=== PATIENT | male | born 1960 | race Caucasian/White ===

== ENCOUNTER → 2016-10-31 | Outpatient (CLI) | payer OTHER ==
[2016-10-31 10:55] LABS: ALBUMIN 3.7 GM/DL (3.2-5.2); ALBUMIN/GLOBULIN RATIO 1.06 (1.00-1.93); ALKALINE PHOSPHATASE 139 U/L (45-117); ALT/SGPT 42 U/L (12-78); ANION GAP 9 MEQ/L (8-16); AST/SGOT 21 U/L (15-37); BILIRUBIN,TOTAL 0.5 MG/DL (0.2-1.0); BLOOD UREA NITROGEN 15 MG/DL (7-18); CALCIUM LEVEL 8.6 MG/DL (8.5-10.1); CARBON DIOXIDE LEVEL 28 MEQ/L (21-32); CHLORIDE LEVEL 100 MEQ/L (98-107); CHOLESTEROL LEVEL 169 MG/DL (<200); CREATININE FOR GFR 0.91 MG/DL (0.70-1.30); GLOMERULAR FILTRATION RATE > 60.0 (>56); GLUCOSE, FASTING 170 MG/DL (70-105); SODIUM LEVEL 137 MEQ/L (136-145); TOTAL PROTEIN 7.2 GM/DL (6.4-8.2); TRIGLYCERIDES LEVEL 146 MG/DL (<150)
== END ==
LOC: M LAB 09:25
PROVIDERS: ATTEND Family Medicine Addiction Medicine
DX: E11.9 Type 2 diabetes mellitus without complications (principal)

== ENCOUNTER → 2017-03-03 | Outpatient (CLI) | payer OTHER ==
[~2017-03-03] MED LIST: ASPI81TA85 PO; GLIP2.5T6 PO; GLUC1000 PO; HYDR50TAB; LISI-538 PO; LOVA20TA2 PO; PREG100CA
[2017-03-03 12:59] LABS: ALBUMIN 3.8 GM/DL (3.2-5.2); ALBUMIN/GLOBULIN RATIO 1.12 (1.00-1.93); ALKALINE PHOSPHATASE 95 U/L (45-117); ALT/SGPT 51 U/L (12-78); ANION GAP 9 MEQ/L (8-16); AST/SGOT 31 U/L (15-37); BILIRUBIN,TOTAL 0.5 MG/DL (0.2-1.0); BLOOD UREA NITROGEN 13 MG/DL (7-18); CALCIUM LEVEL 9.4 MG/DL (8.5-10.1); CARBON DIOXIDE LEVEL 28 MEQ/L (21-32); CHLORIDE LEVEL 100 MEQ/L (98-107); CHOLESTEROL LEVEL 155 MG/DL (<200); CREATININE FOR GFR 0.91 MG/DL (0.70-1.30); GLOMERULAR FILTRATION RATE > 60.0 (>56); GLUCOSE, FASTING 78 MG/DL (70-105); POTASSIUM SERUM 4.4 MEQ/L (3.5-5.1); SODIUM LEVEL 137 MEQ/L (136-145); TOTAL PROTEIN 7.2 GM/DL (6.4-8.2); TRIGLYCERIDES LEVEL 157 MG/DL (<150)
== END ==
LOC: M LAB 11:26
PROVIDERS: ATTEND Family Medicine Addiction Medicine
DX: E11.9 Type 2 diabetes mellitus without complications (principal)

== ENCOUNTER 2017-03-12 16:51 | Emergency (ER) | payer OTHER ==
[~2017-03-12] VITALS: Ht 172.7 cm; Wt 163.3 kg
[2017-03-12] MEDS ORDERED: PREG100CA (17:09)
[2017-03-12] MEDS ORDERED: LOVA20TA2 PO (17:09)
[2017-03-12] MEDS ORDERED: GLUC1000 PO (17:09)
[2017-03-12] MEDS ORDERED: LISI-538 PO (17:09)
[2017-03-12] MEDS ORDERED: ASPI81TA85 PO (17:09)
[2017-03-12] MEDS ORDERED: GLIP2.5T6 PO (17:09)
[2017-03-12] MEDS ORDERED: HYDR50TAB (17:09)
[2017-03-12 17:26] LABS: BASO % 0.6 % (0.0-1.0); EOS # 0.4 K/mm3 (0.0-0.50); EOS % 4.5 % (0.0-3.0); LARGE UNSTAINED CELL # 0.2 K/mm3 (0.0-0.4); LARGE UNSTAINED CELL % 3.1 % (0.0-4.0); LYMPH # 2.3 K/mm3 (1.5-4.5); LYMPH % 29.2 % (24.0-44.0); MEAN CORPUSCULAR HEMOGLOBIN 29.9 pg (27.0-33.0); MEAN CORPUSCULAR HGB CONC 34.1 g/dl (32.0-36.5); MEAN CORPUSCULAR VOLUME 87.8 fl (80.0-96.0); MONO # 0.7 K/mm3 (0.0-0.8); MONO % 8.6 % (0.0-5.0); NEUTROPHILS # 4.3 K/mm3 (1.8-7.7); NEUTROPHILS % 54.1 % (36.0-66.0); PLATELET COUNT, AUTOMATED 327 k/mm3 (150-450); RED CELL DISTRIBUTION WIDTH 13.3 % (11.5-14.5); WHITE BLOOD COUNT 7.9 K/mm3 (4.0-10.0)
[2017-03-12] MEDS ORDERED: ASPIRIN 81 MG CHEW TABLET PO ONE (17:30)
[2017-03-12 17:41] LABS: ALBUMIN 3.9 GM/DL (3.2-5.2); ALBUMIN/GLOBULIN RATIO 1.18 (1.00-1.93); ALKALINE PHOSPHATASE 92 U/L (45-117); ALT/SGPT 48 U/L (12-78); ANION GAP 5 MEQ/L (8-16); AST/SGOT 23 U/L (15-37); BILIRUBIN,DIRECT < 0.1 MG/DL (0.0-0.2); BILIRUBIN,TOTAL 0.3 MG/DL (0.2-1.0); BLOOD UREA NITROGEN 20 MG/DL (7-18); CALCIUM LEVEL 8.8 MG/DL (8.5-10.1); CARBON DIOXIDE LEVEL 29 MEQ/L (21-32); CHLORIDE LEVEL 103 MEQ/L (98-107); CREATININE FOR GFR 1.12 MG/DL (0.70-1.30); GLOMERULAR FILTRATION RATE > 60.0 (>56); GLUCOSE, FASTING 97 MG/DL (70-105); SODIUM LEVEL 137 MEQ/L (136-145); TOTAL PROTEIN 7.2 GM/DL (6.4-8.2)
--- NOTE | 2017-03-12 17:55 | REP ---
Chest one-view HISTORY: Chest pain Comparison: 05/26/2016 The lungs are clear. The heart is normal in size. The pulmonary vasculature is normal in appearance. Impression: No acute disease. Signed by Brenton Monae MD 03/12/2017 05:46 P
[2017-03-12] MEDS ORDERED: ISOVUE-370 76% 100ML VIAL (Q9967) As Ordered ONE (18:07)
--- NOTE | 2017-03-12 19:40 | REPUSA ---
HISTORY: CHEST PAIN RADIATING TO BACK. TECHNIQUE: Axial CT imaging of chest with sagittal and coronal reformatted imaging for PE protocol wi th intravenous contrast enhancement. CTDIVOL= 39.5 mGy DLP= 3728 mGy-cm. FINDINGS: The thoracic aorta is normal with no evidence of aneurysm or dissection. Pulmonary arterie s are normal with no detectable evidence of pulmonary embolism. No pathologically enlarged mediastin al or hilar lymph nodes are seen. No other mediastinal mass lesions are seen. Bone windows demonstr ate no evidence of fracture or destructive bony lesion in the chest. Lung windows demonstrate a 6 mm calcified granuloma in the right middle lobe. There is a 5 mm calcif ied granuloma in the right upper lobe. No pathologically suspicious mass lesions are seen in the kelly gs. There is bilateral groundglass opacification in the lungs and geographic distribution consistent with nonspecific interstitial lung disease. No alveolar consolidation is seen. No pneumothorax or pleural effusions are seen. No cystic lung disease is seen. IMPRESSION: 1. No evidence of thoracic aortic aneurysm or dissection and no evidence of pulmonary em bolism. 2. No mediastinal mass lesions or pathologically enlarged mediastinal or hilar lymphadenopathy seen. 3. No pulmonary alveolar consolidation, pneumothorax, or significant pleural effusion seen in the edwardo ngs. There is diffuse geographic ground glass opacification bilaterally which is a nonspecific findi ng, most likely related to interstitial lung disease. 4. Small calcified granulomata noted with no suspicious pulmonary mass lesions seen.
--- NOTE | 2017-03-12 20:00 | REPUSA ---
HISTORY: BACK PAIN. TECHNIQUE: Axial CT imaging of abdomen and pelvis with sagittal and coronal reformatted imaging with intravenous contrast enhancement. DLP= 3728 mGy-cm. FINDINGS: The liver, biliary tree, gallbladder, spleen, pancreas, adrenal glands, and kidneys are nor mal with no pathologic mass seen. Both kidneys function without evidence of calculus or obstruction. There is a benign 2.6 cm cyst in the left kidney. There is no evidence of solid renal mass, hydron ephrosis, or calculi seen. Uterus and urinary bladder are normal. Calcified plaques are seen in the abdominal aorta, including a calcified plaque in the celiac axis. There is no evidence of aortic an eurysm or retroperitoneal adenopathy. No pelvic mass lesions or abnormal peritoneal fluid collection s are seen. The bowel is normal with no bowel wall mass lesion, obstruction, perforation, inflammato ry reaction, or evidence of diverticulitis. The appendix is visualized and normal. No abdominal wal l is seen. No bony fracture or destructive bony lesion is seen. IMPRESSION: 1. Small benign cyst noted in the left kidney. 2. Otherwise, negative CT examination of the abdomen and pelvis with no pathologic mass or abnormal fluid collection seen.
--- NOTE | 2017-03-12 21:38 | ECGEPIP ---
Stationary ECG Study [facility] - ED Test Date: 2017-03-12 Pat Name: TAMARA CANNON Department: Room: - Gender: M Truss Designer: maricel : 1960 Requested By: GABINO Wright Order Number: [id number] Reading MD: Erica Fitzgerald Measurements Intervals [place] Rate: 79 P: 7 IA: 149 QRS: 22 QRSD: 90 T: 31 QT: 361 QTc: 416 Interpretive Statements SINUS RHYTHM SIMILAR 07/13/16 Electronically Signed On 03-12-2017 21:38:46 EDT by Erica Fitzgerald
[2017-03-12 22:45] VITALS: BP 123/59
--- NOTE | 2017-03-13 07:20 | ECGEPIP ---
Stationary ECG Study [facility] - ED Test Date: 2017-03-12 Pat Name: TAMARA CANNON Department: Room: - Gender: M Marker Machine: wendie : 1960 Requested By: GABINO Wright Order Number: [id number] Reading MD: Pito Oliveira Measurements Intervals [place] Rate: 72 P: 6 SC: 148 QRS: 24 QRSD: 98 T: 35 QT: 371 QTc: 408 Interpretive Statements SINUS RHYTHM Electronically Signed On 03-13-2017 7:20:29 EDT by Pito Oliveira
== END 2017-03-12 23:10 | disposition home or self-care (01) ==
LOC: M ED 16:51
DX: R07.9 Chest pain, unspecified (principal); E11.9 Type 2 diabetes mellitus without complications; I10 Essential (primary) hypertension; E78.4 Other hyperlipidemia

== ENCOUNTER → 2017-05-05 | Outpatient (CLI) | payer OTHER ==
[2017-05-05 12:35] LABS: ALBUMIN 3.8 GM/DL (3.2-5.2); ALBUMIN/GLOBULIN RATIO 1.12 (1.00-1.93); ALKALINE PHOSPHATASE 97 U/L (45-117); ALT/SGPT 36 U/L (12-78); ANION GAP 14 MEQ/L (8-16); AST/SGOT 20 U/L (15-37); BILIRUBIN,TOTAL 0.6 MG/DL (0.2-1.0); BLOOD UREA NITROGEN 12 MG/DL (7-18); CALCIUM LEVEL 9.3 MG/DL (8.5-10.1); CARBON DIOXIDE LEVEL 26 MEQ/L (21-32); CHLORIDE LEVEL 102 MEQ/L (98-107); CHOLESTEROL LEVEL 162 MG/DL (<200); CREATININE FOR GFR 0.84 MG/DL (0.70-1.30); GLOMERULAR FILTRATION RATE > 60.0 (>56); GLUCOSE, FASTING 91 MG/DL (70-105); POTASSIUM SERUM 3.6 MEQ/L (3.5-5.1); SODIUM LEVEL 142 MEQ/L (136-145); TOTAL PROTEIN 7.2 GM/DL (6.4-8.2); TRIGLYCERIDES LEVEL 112 MG/DL (<150)
== END ==
LOC: M LAB 10:56
PROVIDERS: ATTEND Family Medicine Addiction Medicine
DX: E11.9 Type 2 diabetes mellitus without complications (principal)

== ENCOUNTER → 2017-08-18 | Outpatient (CLI) | payer MEDICAID ==
--- NOTE | 2017-08-18 21:52 | REP ---
Chest x-ray: Two views. History: Shortness of breath. Comparison chest x-ray March 12, 2017. February 14, 2014 prior study is also reviewed. Findings: The lungs are symmetrically aerated and clear. Pleural angles are sharp. Heart is not enlarged. Pulmonary vasculature is not increased. There is an old granuloma in the right upper lobe. No significant bony abnormality. Impression: No active disease. Signed by Sher Parker MD 08/19/2017 08:10 A
== END ==
LOC: M RAD 13:56
PROVIDERS: ATTEND Family Medicine Addiction Medicine
DX: R06.02 Shortness of breath (principal)

== ENCOUNTER → 2017-09-16 | Outpatient (CLI) | payer OTHER, MEDICAID | LOC: M SLEEP 19:47 | DX: G47.33 Obstructive sleep apnea (adult) (pediatric) (principal) | CPT/HCPCS: 95810 ==

== ENCOUNTER → 2017-10-11 | Outpatient (CLI) | payer OTHER | LOC: M SLEEP 19:08 | DX: G47.33 Obstructive sleep apnea (adult) (pediatric) (principal) | CPT/HCPCS: 95811 ==

== ENCOUNTER → 2017-12-27 | Outpatient (REF) | payer OTHER, MEDICAID ==
[2017-12-27 12:46] LABS: ESTIMATED AVERAGE GLUCOSE 143 MG/DL (60-110); HEMOGLOBIN A1c 6.6 %
[2017-12-27 13:17] LABS: ALBUMIN 4.3 GM/DL (3.2-5.2); ALBUMIN/GLOBULIN RATIO 1.43 (1.00-1.93); ALKALINE PHOSPHATASE 114 U/L (45-117); ALT/SGPT 61 U/L (12-78); ANION GAP 10 MEQ/L (8-16); AST/SGOT 42 U/L (7-37); BILIRUBIN,TOTAL 0.6 MG/DL (0.2-1.0); BLOOD UREA NITROGEN 16 MG/DL (7-18); CALCIUM LEVEL 9.1 MG/DL (8.5-10.1); CARBON DIOXIDE LEVEL 28 MEQ/L (21-32); CHLORIDE LEVEL 104 MEQ/L (98-107); CHOLESTEROL LEVEL 164 MG/DL (<200); CHOLESTEROL RISK RATIO 3.904 (<5); GLOMERULAR FILTRATION RATE > 60.0 (>56); GLUCOSE, FASTING 134 MG/DL (70-100); HDL CHOLESTEROL 42 MG/DL (>40); LDL CHOLESTEROL 101.6 MG/DL (<100); NON-HDL-C 122 MG/DL; POTASSIUM SERUM 3.8 MEQ/L (3.5-5.1); SODIUM LEVEL 142 MEQ/L (136-145); TOTAL PROTEIN 7.3 GM/DL (6.4-8.2); TRIGLYCERIDES LEVEL 102 MG/DL (<150)
[2017-12-27 13:30] LABS: MALB URINE SIEMENS 9.2 MG/L; MAU/CREAT RATIO 9.2 MCG/MG (0.0-30.0)
== END ==
LOC: M LAB REF 11:54
DX: E11.9 Type 2 diabetes mellitus without complications (principal)

== ENCOUNTER → 2018-05-24 | Outpatient (REF) | payer OTHER, MEDICAID ==
[2018-05-24 19:41] LABS: ALBUMIN 3.8 GM/DL (3.2-5.2); ALBUMIN/GLOBULIN RATIO 1.09 (1.00-1.93); ALKALINE PHOSPHATASE 140 U/L (45-117); ALT/SGPT 56 U/L (12-78); ANION GAP 12 MEQ/L (8-16); AST/SGOT 34 U/L (7-37); BILIRUBIN,TOTAL 0.4 MG/DL (0.2-1.0); BLOOD UREA NITROGEN 16 MG/DL (7-18); CARBON DIOXIDE LEVEL 27 MEQ/L (21-32); CHLORIDE LEVEL 101 MEQ/L (98-107); CHOLESTEROL LEVEL 166 MG/DL (<200); CHOLESTEROL RISK RATIO 4.611 (<5); GLOMERULAR FILTRATION RATE > 60.0 (>56); GLUCOSE, FASTING 147 MG/DL (70-100); HDL CHOLESTEROL 36 MG/DL (>40); LDL CHOLESTEROL 96 MG/DL (<100); NON-HDL-C 130 MG/DL; POTASSIUM SERUM 3.7 MEQ/L (3.5-5.1); SODIUM LEVEL 140 MEQ/L (136-145); TOTAL PROTEIN 7.3 GM/DL (6.4-8.2); TRIGLYCERIDES LEVEL 172 MG/DL (<150)
[2018-05-24 21:54] LABS: ESTIMATED AVERAGE GLUCOSE 151 MG/DL (60-110); HEMOGLOBIN A1c 6.9 %
== END ==
LOC: M LAB REF 18:05
DX: E11.9 Type 2 diabetes mellitus without complications (principal)
CPT/HCPCS: 84443

== ENCOUNTER 2020-03-18 19:55 | Inpatient (IN) | payer MEDICAID, OTHER ==
[~2020-03-18] VITALS: Ht 172.7 cm; Wt 151.9 kg
[~2020-03-18 19:55] MED LIST changes: -ASPI81TA85 PO; +ASPI81TA86 PO
[2020-03-18] MEDS ORDERED: ACETAMINOPHEN 325 MG TAB As Ordered ONE (20:23)
[2020-03-18] MEDS ORDERED: ACETAMINOPHEN 325 MG SUPP As Ordered ONE (20:25)
[2020-03-18 20:43] LABS: BASO % 0.1 % (0.0-1.0); HEMATOCRIT 45.1 % (42.0-52.0); HEMOGLOBIN 14.9 g/dl (13.5-17.5); LYMPH # 0.7 10^3/uL (1.5-5.0); LYMPH % 7.4 % (24.0-44.0); MEAN CORPUSCULAR VOLUME 87.7 fl (80.0-96.0); MONO # 0.6 10^3/uL (0.0-0.8); MONO % 6.2 % (0.0-5.0); NEUTROPHILS # 8.1 10^3/uL (1.5-8.5); NEUTROPHILS % 85.8 % (36.0-66.0); PLATELET COUNT, AUTOMATED 261 10^3/uL (150-450); RED BLOOD COUNT 5.14 10^6/uL (4.30-6.10); WHITE BLOOD COUNT 9.4 10^3/uL (4.0-10.0)
[2020-03-18 20:59] LABS: INR 1.05; PROTHROMBIN TIME 13.4 SECONDS (11.8-14.0)
[2020-03-18 21:00] LABS: PARTIAL THROMBOPLASTIN TIME 33.7 SECONDS (25.0-38.4)
[2020-03-18] MEDS ORDERED: AZITHROMYCIN INJ 500 MG, VIAL MATE ADAPTER 1 EACH in D5W 250 ML IV ONE (21:00)
[2020-03-18] MEDS ORDERED: AMITRIPTYLINE 25 MG TAB PO SCH (21:00)
[2020-03-18] MEDS ORDERED: cefTRIAXone SOD 2 GM in D5W MINI-BAG PLUS 50 ML IV ONE (21:00)
[2020-03-18] MEDS ORDERED: dexameTHASONE 20MG/5ML VIAL (J1100 PER 1MG) IV ONE (21:00)
[2020-03-18 21:02] LABS: D-DIMER QUANT 1003.98 ng/ml (<500)
[2020-03-18 21:16] LABS: ALBUMIN 3.1 GM/DL (3.2-5.2); ALT/SGPT 51 U/L (12-78); BILIRUBIN,TOTAL 0.6 MG/DL (0.2-1.0); BLOOD UREA NITROGEN 16 MG/DL (7-18); CALCIUM LEVEL 8.3 MG/DL (8.8-10.2); CARBON DIOXIDE LEVEL 29 MEQ/L (21-32); CHLORIDE LEVEL 99 MEQ/L (98-107); CK-MB VALUE MASS < 1.0 NG/ML (<3.6); CPK CREATINE PHOSPHOKINASE 83 U/L (39-308); CREATININE FOR GFR 1.11 MG/DL (0.70-1.30); FERRITIN 459 NG/ML (26-388); GLOMERULAR FILTRATION RATE > 60.0 (>49); GLUCOSE, FASTING 144 MG/DL (70-100); LDH LACTATE DEHYDROGENASE 445 U/L (87-241); NT-PRO BNP 234 PG/ML (<125); POTASSIUM SERUM 3.3 MEQ/L (3.5-5.1); SODIUM LEVEL 136 MEQ/L (136-145); TOTAL PROTEIN 6.9 GM/DL (6.4-8.2); TROPONIN I 0.04 NG/ML (< 0.10)
[2020-03-18] MEDS ORDERED: FLUT44IN INH (21:42)
[2020-03-18] MEDS ORDERED: GLIP10TA6 PO (21:42)
[2020-03-18] MEDS ORDERED: LOSA50TA88 PO (21:42)
[2020-03-18] MEDS ORDERED: MOBI4TAB PO (21:42)
[2020-03-18] MEDS ORDERED: HYDR12CA PO (21:42)
[2020-03-18] MEDS ORDERED: AMIT75TA PO (21:42)
[2020-03-18] MEDS ORDERED: FLON1SPR (21:42)
[2020-03-18] MEDS ORDERED: PROAAER10 INH (21:42)
[2020-03-18] MEDS ORDERED: ASPI-161 PO (21:42)
[2020-03-18] MEDS ORDERED: JARD1TAB3 PO (21:42)
[2020-03-18] MEDS ORDERED: PREG100CA PO ×2 (21:42)
[2020-03-18] MEDS ORDERED: DEXTROSE 50% 50 ML SYRINGE IV PRN (22:30)
[2020-03-18] MEDS ORDERED: GLUCOSE 4GM CHEW TABLET PO PRN (22:30)
[2020-03-18] MEDS ORDERED: GLUCAGON INJ 1MG VIAL SC PRN (22:30)
[2020-03-18] MEDS ORDERED: FLUTICASONE PROP 0.05% NASAL SPRAY 16 GM (FLONASE) PRN (22:30)
[2020-03-18] MEDS ORDERED: NS 1,000 ML IV SCH (22:30)
[2020-03-19] VITALS (12 sets, daily range): BP systolic 124–141; BP diastolic 60–81; O2SAT 89–99
[2020-03-19 01:07] LABS: ABG BASE EXCESS -0.9 (-2.0-2.0); ABG HCO3 23.2 MEQ/L (22.0-26.0); ABG O2 SATURATION 92.4 % (95.0-99.0); ABG PARTIAL PRESSURE O2 64.9 mmHg (75.0-100.0); ABG STANDARD HCO3 23.6 MEQ/L (22.0-26.0); ABG TOTAL CO2 24.4 MEQ/L (23.0-31.0); ABG pH (ARTERIAL) 7.416 UNITS (7.350-7.450)
[2020-03-19] MEDS: FLUTICASONE HFA 44 MCG 10.6GM INHALER (FLOVENT) INH SCH ×3 (01:27→19:41)
[2020-03-19 01:41] LABS: BASO % 0.2 % (0.0-1.0); HEMATOCRIT 45.4 % (42.0-52.0); HEMOGLOBIN 15.2 g/dl (13.5-17.5); LYMPH # 0.9 10^3/uL (1.5-5.0); MEAN CORPUSCULAR HEMOGLOBIN 29.1 pg (27.0-33.0); MEAN CORPUSCULAR HGB CONC 33.5 g/dl (32.0-36.5); MEAN CORPUSCULAR VOLUME 86.8 fl (80.0-96.0); MONO # 0.5 10^3/uL (0.0-0.8); NEUTROPHILS # 8.3 10^3/uL (1.5-8.5); NEUTROPHILS % 85.4 % (36.0-66.0); PLATELET COUNT, AUTOMATED 242 10^3/uL (150-450); RED BLOOD COUNT 5.23 10^6/uL (4.30-6.10); WHITE BLOOD COUNT 9.7 10^3/uL (4.0-10.0)
[2020-03-19 01:49] LABS: INR 1.08; PROTHROMBIN TIME 13.7 SECONDS (11.8-14.0)
[2020-03-19 01:50] LABS: PARTIAL THROMBOPLASTIN TIME 33.8 SECONDS (25.0-38.4)
[2020-03-19 01:53] LABS: D-DIMER QUANT 1151.44 ng/ml (<500)
[2020-03-19] MEDS ORDERED: POTASSIUM CHLORIDE 10 MEQ SR TABLET PO ONE (02:15)
[2020-03-19] MEDS ORDERED: POTASSIUM CHLORIDE 10 MEQ SR TABLET As Ordered ONE (02:15)
[2020-03-19] MEDS: PANTOPRAZOLE 40MG VIAL (C9113 PER 1) IV SCH ×2 (02:17→20:48)
[2020-03-19] MEDS: HumaLOG INSULIN (NovoLOG) PER UNIT SC SCH ×5 (02:18→23:31)
[2020-03-19] MEDS: PREGABALIN 100 MG CAP (LYRICA) PO SCH ×3 (02:18→20:48)
[2020-03-19] MEDS: ENOXAPARIN 80MG/0.8ML SYRINGE (J1650 PER 10MG) SC SCH ×3 (02:22→23:30)
[2020-03-19 03:49] LABS: CK-MB VALUE MASS < 1.0 NG/ML (<3.6); CPK CREATINE PHOSPHOKINASE 100 U/L (39-308); FERRITIN 486 NG/ML (26-388); LDH LACTATE DEHYDROGENASE 447 U/L (87-241); NT-PRO BNP 335 PG/ML (<125); TRIGLYCERIDES LEVEL 119 MG/DL (<150); TROPONIN I 0.06 NG/ML (< 0.10)
--- NOTE | 2020-03-19 04:39 | HPEPDOC ---
General Date of Admission Mar 18, 2020 at 22:13 Date of Service: Mar 18, 2020 Chief Complaint The patient is a 59-year-old male Who presented to the hospital with shortness of breath History of Present Illness Patient is a 59-year-old male with a PMHx of HTN, DLP, NIDDM2, DIPTI on CPAP, who presented to the hospital with complaints of worseing shortness of breath and cough. Patient reports that on daily he was tested for Covid and found to be positive. He noted that he went for testing after experiencing 1 week of symptoms that he describes as fevers, body aches and coughing. After his testing, on Wednesday he reported that he begin to have worsening shortness of breath and cough. Patient describes that his cough has clear sputum without any blood. He denies any chest pain. Reports diffuse body aches. Patient also reports nausea and has vomited reports at least 3 episodes of vomiting today without blood. Denies any abdominal discomfort has reported diarrhea 2-3 episodes a day. Describes the diarrhea as watery. Patient reports that he has had a fever at home that he noted at 100.8 F. Patient reports that hes hungry, but he cant eat much. Emergency room providers have called hospitals for evaluation and admission Currently, patient reports that he does feel better than the point of arrival to the emergency room. Home Medications Scheduled Amitriptyline HCl (Amitriptyline HCl) 75 Mg Tablet, 75 MG PO QHS, (Reported) Aspirin (Aspirin EC) 81 Mg Tablet.dr, 81 MG PO DAILY, (Reported) Empagliflozin (Jardiance) 25 Mg Tablet, 25 MG PO DAILY, (Reported) Fluticasone Propionate (Flovent Hfa) 44 Mcg/Act Aer.w.adap, 2 PUFF INH BID, (Reported) Glipizide (Glipizide) 10 Mg Tablet, 10 MG PO DAILY, (Reported) Hydrochlorothiazide (Hydrochlorothiazide) 12.5 Mg Capsule, 12.5 MG PO DAILY, (Reported) Losartan Potassium (Losartan Potassium) 50 Mg Tablet, 50 MG PO QHS, (Reported) Meloxicam (Mobic) 7.5 Mg Tablet, 7.5 MG PO DAILY, (Reported) WITH FOOD Metformin HCl (Glucophage) 1,000 Mg Tab, 1,000 MG PO BID, (Reported) Pregabalin (Lyrica) 100 Mg Capsule, 200 MG PO DAILY, (Reported) Pregabalin (Lyrica) 100 Mg Capsule, 100 MG PO QHS, (Reported) Scheduled PRN Albuterol Sulfate (Proair Hfa) 8.5 Gm Hfa.aer.ad, 2 PUFF INH Q4H PRN for SHORTNESS OF BREATH, (Reported) Fluticasone Propionate (Flonase Allergy Relief) 9.9 Ml Foley.susp, 1 SPRAY NA BID PRN for NASAL CONGESTION, (Reported) Allergies Coded Allergies: Penicillins (Verified Allergy, Unknown, 03/18/20) Past Medical History Medical History HTN, DLP, NIDDM2, DIPTI on CPAP Surgical History Left knee surgery Nose surgery Family History - Family history was reviewed and noncontributory to this hospitalization Social History - Denies the use of illicit drugs; patient drinks alcohol socially; patient quit smoking 35 years ago - Denies recent travel or sick contacts - Lives with family and is from [place] - Occupation; auto-parts delivery Review of Systems Other systems 10 point review of systems complete, all negative otherwise stated in HPI Vital Signs - Vitals: BP [131/72], HR [102], RR [30], Sat [93%CPAP-100%FIO2], Temp [102.2] - General: Lying in bed, Speaking short sentences, AAOx3 - HEENT: NC, AT, PERRLA - CVS: Tachycardic, +S1S2 - Lungs: Poor inspiratory effort bilaterally, Upper lung coburn with wheezing - Abdomen: Soft, Non-distended, Non-tender, Morbid obesity - Extremities: No lower extremity edema, No calf tenderness - Neuro: No focal motor or sensory deficit - Skin: No visible rashes Laboratory Data Labs 24H Laboratory Tests 2 03/18/20 20:03: Immature Granulocyte % (Auto) 0.5, Neutrophils (%) (Auto) 85.8H, Lymphocytes (%) (Auto) 7.4L, Monocytes (%) (Auto) 6.2H, Eosinophils (%) (Auto) 0.0, Basophils (%) (Auto) 0.1, Neutrophils # (Auto) 8.1, Lymphocytes # (Auto) 0.7L, Monocytes # (Auto) 0.6, Eosinophils # (Auto) 0.0, Basophils # (Auto) 0.0, Nucleated Red Blood Cells % (auto) 0.0, Prothrombin Time 13.4, Prothromb Time International Ratio 1.05, Activated Partial Thromboplast Time 33.7, D-Dimer, Quantitative 1003.98H, Anion Gap 8, Glomerular Filtration Rate > 60.0, Lactic Acid Level 2.5*H, Calcium Level 8.3L, Ferritin 459H, Total Bilirubin 0.6, Aspartate Amino Transf (AST/SGOT) 59H, Alanine Aminotransferase (ALT/SGPT) 51, Alkaline Phosphatase 95, Lactate Dehydrogenase 445H, Total Creatine Kinase 83, Creatine Kinase MB < 1.0, Creatine Kinase MB Relative Index 1.20, Troponin I 0.04, C- Reactive Protein, Quantitative 25.60H, TG-Edx-I-Type Natriuretic Peptide 234H, Total Protein 6.9, Albumin 3.1L, Albumin/Globulin Ratio 0.8 03/18/20 20:31: POC pH (Misc Panel) 7.439, POC Base Excess (Misc Panel) 2.0, POC Saturated Percent O2 (Misc) 77L, POC pO2 (Misc Panel) 40.0*L, POC pCO2 (Misc Panel) 38.1, POC HCO3 (Misc Panel) 25.8, POC Total CO2 (Misc Panel) 27.0 CBC/BMP Laboratory Tests 03/18/20 20:03 Microbiology Microbiology 03/18/20 Blood Culture, Received Pending 03/18/20 Blood Culture, Received Pending Plan / VTE VTE Prophylaxis Ordered?: Yes Plan Plan Shortness of breath / Acute hypoxic respiratory failure - likely 2/2 COVID - Patient was found to be positive for COVID on Wednesday - No history of asthma or COPD - Patient is having severe hypoxia is on CPAP currently - Physical reveals poor air entry bilaterally and wheezing - ABG noted to have severe hypoxia - CXR reviewed - Will follow COVID order set; Trend CRP / D-dimer / CMP / Troponin - Will start Dexamethasone 6mg IV daily - Will provide empiric coverage with Ceftriaxone and Azithromycin until PCT results - Tylenol PRN for fevers - Case discussed with bus greaser; appreciate recommendations Elevated Cr - Avoid nephrotoxic medications - c/w IV fluid hydration Lactic aciodosis - possibly 2/2 work of breathing, possibly 2/2 infection - Will start gentle IV fluid hydration HTN - Will hold HCTZ / Losartan (re: elevated Cr) DLP - Currently not on medications NIDDM2 - Will start ISS q6h - Sips and Chips only at this time DIPTI on CPAP - Currently on CPAP in ICU Mood disorder - c/w Amitriptyline Neuropathy - c/w Gabapentin Gastrointestinal prophylaxis - Will start Protonix DVT prophylaxis - Will start weight based lovenox Code status: - Discussed with HCP; Britt Pastor ([phone]) and patient - Patient is DNR but wants a trial of intubation - Will update MOLST form to reflect this GABRIELLA FAM MD Mar 18, 2020 23:06
[2020-03-19 06:02] LABS: INR 1.06; PROTHROMBIN TIME 13.5 SECONDS (11.8-14.0)
[2020-03-19 06:03] LABS: PARTIAL THROMBOPLASTIN TIME 33.6 SECONDS (25.0-38.4)
[2020-03-19 06:06] LABS: D-DIMER QUANT 911.96 ng/ml (<500)
[2020-03-19 06:26] LABS: FERRITIN 469 NG/ML (26-388); LDH LACTATE DEHYDROGENASE 443 U/L (87-241); NT-PRO BNP 323 PG/ML (<125); TRIGLYCERIDES LEVEL 125 MG/DL (<150); TROPONIN I 0.02 NG/ML (< 0.10)
[2020-03-19 07:17] LABS: BLOOD UREA NITROGEN 22 MG/DL (7-18); CALCIUM LEVEL 8.3 MG/DL (8.8-10.2); CARBON DIOXIDE LEVEL 27 MEQ/L (21-32); CHLORIDE LEVEL 102 MEQ/L (98-107); CREATININE FOR GFR 0.89 MG/DL (0.70-1.30); GLOMERULAR FILTRATION RATE > 60.0 (>49); GLUCOSE, FASTING 141 MG/DL (70-100); POTASSIUM SERUM 3.7 MEQ/L (3.5-5.1); SODIUM LEVEL 140 MEQ/L (136-145)
[2020-03-19] MEDS: dexameTHASONE 20MG/5ML VIAL (J1100 PER 1MG) IV SCH (08:09)
[2020-03-19] MEDS: ASPIRIN 81 MG ENTERIC TAB PO SCH (08:09)
--- NOTE | 2020-03-19 08:17 | REP ---
Clinical: Tamayo virus workup. Comparison: 08/18/2017. Findings: Diffuse bilateral alveolar and interstitial infiltrates are identified and consistent with the suspected history of Tamayo virus. Mediastinum and cardiac silhouette are within normal limits for portable technique. No obvious effusion. No pneumothorax. Skeletal structures are intact. Impression: Diffuse bilateral infiltrates compatible with the suspected diagnosis of Tamayo virus. Electronically Signed by Mt Martinez MD 03/19/2020 08:09 A
[2020-03-19] MEDS ORDERED: FLUTICASONE HFA 44 MCG 10.6GM INHALER (FLOVENT) ONE (10:00)
[2020-03-19 11:17] LABS: BASO % 0.2 % (0.0-1.0); HEMATOCRIT 44.1 % (42.0-52.0); HEMOGLOBIN 14.7 g/dl (13.5-17.5); LYMPH # 0.9 10^3/uL (1.5-5.0); LYMPH % 10.3 % (24.0-44.0); MEAN CORPUSCULAR HEMOGLOBIN 29.3 pg (27.0-33.0); MEAN CORPUSCULAR HGB CONC 33.3 g/dl (32.0-36.5); MONO # 0.6 10^3/uL (0.0-0.8); MONO % 6.6 % (0.0-5.0); NEUTROPHILS % 82.4 % (36.0-66.0); PLATELET COUNT, AUTOMATED 257 10^3/uL (150-450); RED BLOOD COUNT 5.01 10^6/uL (4.30-6.10); WHITE BLOOD COUNT 8.5 10^3/uL (4.0-10.0)
--- NOTE | 2020-03-19 13:21 | IPNPDOC ---
Text Note Date of Service The patient was seen on 03/19/20. NOTE Subjective: Patient continues to have high oxygen requirements. Currently on a BiPAP Objective: VITAL SIGNS: Please see below. GENERAL: awake, alert, breathing via BiPAP, morbidly obese male HEENT: NCAT, anicteric sclera, KYLE NECK: supple, no JVD CARDIOVASCULAR EXAMINATION: Tachycardic, S1-S2 RESPIRATORY EXAMINATION: Rales bilaterally ABDOMINAL EXAMINATION: positive bowel sounds x 4, NT EXTREMITIES: no cyanosis, clubbing, edema SKIN: warm, no rashes. NEUROLOGICAL EXAMINATION: AAO x 3, no motor/sensory deficits Assessment and plan: Patient 5 years old male with past history of HTN, DLP, NIDDM2, DIPTI on CPAP, who presented to the hospital with complaints of worsening shortness of breath and cough. Patient was diagnosed with Covid pneumonia. Acute on chronic respiratory failure Blood gas showed acute hypoxemic respiratory failure Secondary to Covid pneumonia Continue BiPAP Continue steroids IV Continue azithromycin IV and ceftriaxone IV Pro calcitonin pending Lactic acidosis Most likely secondary to hypoxemia and metformin Resolved Hypertension Blood pressures under control Continue home cardioprotective medications with parameters Hyperlipidemia I will start atorvastatin Diabetes type 2 Insulin sliding scale Diabetes diet VS,Fishbone, I+O VS, Fishbone, I+O Laboratory Tests 03/18/20 20:03 03/19/20 01:37 03/19/20 05:40 Vital Signs Date Time Temp Pulse Resp B/P (MAP) Pulse Ox O2 Delivery O2 Flow Rate FiO2 03/19/20 08:31 91 BIPAP/CPAP 100 03/19/20 08:31 79 31 03/19/20 08:00 98.6 138/66 (90) 03/18/20 21:42 4.0 I&O- Last 24 Hours up to 6 AM 03/19/20 06:00 Intake Total 835 ml Output Total 1000 ml Balance -165 ml JIHAN NARANJO DO Mar 19, 2020 13:21
[2020-03-19] MEDS ORDERED: ALBUTEROL 90 MCG/ACT 8GM HFA INHALER INH PRN (14:30)
--- NOTE | 2020-03-19 15:39 | CR ---
DATE OF CONSULTATION: 03/19/2020 HISTORY OF PRESENT ILLNESS: Mr. Cote is a 59-year-old male with a past medical history of hypertension, hyperlipidemia, diabetes, morbid obesity, obstructive sleep apnea (DIPTI), on continuous positive airway pressure (CPAP), who had presented to the hospital with complaints of worsening shortness of breath as well as a cough. The patient is from [place], [place]. Had previously lived in [place] but is here visiting. The patient states he has not had his CPAP while he is visiting for the past 2 weeks or so. He started having symptoms of myalgias as well as fevers and coughing about a week and half ago. The patient was also having shortness of breath and had gone for testing for coronavirus and was reportedly found to be positive. He did not receive any antibiotics or other medications but stated he continued to have intermittent fevers, which would improve with Tylenol and then would recur again a few days later. He also continued to have myalgias as well as some nausea and vomiting as well as some episodes of diarrhea. The patient was also reporting some cough productive of clear sputum. Denied any hemoptysis. He was having some chest tightness and discomfort in addition to his shortness of breath. The patient's family was concerned, as he was told that his lips appeared blue, and he presented to the emergency department (ED) for further evaluation. When emergency medical services (EMS) arrived to see the patient, he reportedly had a temperature of 104.5 temporally. He was given nasal cannula supplementation en route to the ED as well as Decadron 10 mg intravenous (IV), 4 mg IV Zosyn, and two nebulizer treatments. In the ED, the patient was noted to be hypoxemic on room air. In the ED the patient was hypoxic and appeared tachypneic. He was on a non-rebreather, however, continued to have hypoxia with saturations only in the low 80s and high 70s. The patient was placed on a CPAP at 16 cm of water and 100% FiO2 with improvement in his oxygenation. The patient was also given broad-spectrum antibiotics in the emergency department (ED) and was then transferred to the intensive care unit (ICU) under COVID precautions for further management. This morning, the patient is still on CPAP at 16 cm water and 100% FiO2. The patient is saturating anywhere from 95%, occasionally down into the low 90s while on the CPAP. He does report his breathing has improved, and his tachypnea and work of breathing also appears improved. He does continue to have symptoms of shortness of breath and sensation of unable to take a deep breath, but he states it is improved since his admission. The patient's fevers also have improved overnight, and he has been afebrile now this morning. His maximal temperature was 104.7 on admission. The patient also denies any further episodes of nausea or vomiting currently. PAST MEDICAL AND SURGICAL HISTORY: 1. Hypertension. 2. Hyperlipidemia. 3. Diabetes. 4. DIPTI on CPAP. 5. Morbid obesity. 6. Left knee surgery. 7. Nose surgery HOME MEDICATIONS: Amitriptyline, aspirin, Jardiance, Flovent glipizide, hydrochlorothiazide, losartan, meloxicam, metformin, Lyrica, and albuterol as needed. FAMILY HISTORY: Reviewed and noncontributory to this hospitalization. SOCIAL HISTORY: The patient is a former smoker. Was two packs a day for 10-15 years. Quit smoking 35 years ago. The patient drinks alcohol socially. Denies use of other illicit drugs. The patient works in [employer]. He is originally from [place] and then moved to [place]. He is here visiting his family in [place]. REVIEW OF SYSTEMS: Somewhat limited, as the patient is on CPAP. PHYSICAL EXAMINATION: Maximal temperature 104.2, current temperature 98.2, pulse 79, respirations 27, blood pressure 134/71, oxygen saturation 91%-95% on 100% percent FiO2. Input 530, output 1 liter, net negative 470 mL. GENERAL: The patient is a morbidly obese male. Is lying in the bed and does not appear to be in acute respiratory distress. The patient is mildly tachypneic but does not appear to be using significant accessory muscles for respiration. He is able to speak in short, complete sentences. HEENT: Normocephalic, atraumatic. Mucous membranes are moist. Neck is supple. Trachea is midline. There is no palpable cervical adenopathy. Unable to appreciate jugular venous distention (JVD) with thick neck habitus. CARDIAC: Regular rate and rhythm. Normal S1, S2. Unable to appreciate any murmurs. PULMONARY: There are diminished breath sounds bilaterally. Unable to appreciate any rhonchi or rales and no wheezing currently. ABDOMEN: Obese, nondistended. Mild epigastric tenderness. Unable to palpate any organomegaly due to body habitus. EXTREMITIES: There is no lower extremity mode noted bilaterally. There is no calf tenderness. SKIN: The patient has visible tattoos on his torso and extremities. LABORATORY DATA WBC 9.7, hemoglobin 15.2, platelets of 242. Chemistry: Sodium is 140, potassium 3.7, chloride is 102, bicarbonate 27, BUN 22, creatinine 0.89, glucose 141. LABORATORY DATA: Lactic acid 1.9, calcium 8.3. BNP was 323. Ferritin trended down to 469. LDH is 443, troponin 0.06. CRP 26.8. D-dimer trending down to 911. ABG: A pH 7.416, pCO2 of 37, pO2 of 64.9. IMAGING: Chest x-ray showed diffuse bilateral alveolar and interstitial infiltrates. ASSESSMENT AND PLAN: The patient is a 59-year-old male with a past medical history of hypertension, hyperlipidemia, diabetes, morbid obesity, obstructive sleep apnea (DIPTI), on CPAP, who presented with worsening shortness of breath, fevers, and cough. The patient is visiting from [place], [place]. He had developed symptoms of fevers, myalgias, shortness breath, and cough and had testing, which was reportedly positive for coronavirus. The patient's symptoms were not improving, and he was noted to be more short of breath in the past few days and so had presented to the emergency department (ED) for further evaluation. The patient was febrile and hypoxic, requiring oxygen supplementation, which initially was nasal cannula and then non-rebreather. He continued to have hypoxia, however, with the non-rebreather and then was placed on CPAP with improvement in his oxygenation. The patient's ABG did not show any respiratory acidosis and just the acute hypoxemic respiratory failure. His imaging on admission did show patchy bilateral opacities, which could be consistent with COVID pneumonia as well as possible other infectious etiologies as well. - The patient's COVID testing is pending. Will continue him on airborne isolation while on CPAP due to aerosolization risk. - The patient was given Decadron in the ED and after discussion with the hospitalist was recommended to continue with Decadron 6 mg IV daily for his COVID pneumonia for a course of 5-10 days. Would re-evaluate after 5 days and to see if he would need continuation of the Decadron to the 10-day course or not. - The patient was also given broad-spectrum antibiotic coverage for possible superimposed bacterial community-acquired pneumonia with ceftriaxone and azithromycin. Would check the procalcitonin and if negative would discontinue antibiotics.. - The patient will be continued on CPAP, currently at 16 cm water and 100% FiO2. Would attempt to wean down his FiO2 as tolerated. He is unclear about his home CPAP settings but feels he may be on 14 cm of water. - Would attempt to maintain an oxygen saturation above 88%. The patient may be able to be weaned from the CPAP to a Vapotherm as tolerated to give him breaks of the noninvasive positive pressure ventilation. He does need to be on CPAP at night, however, also given his history of DIPTI. Suspect with his morbid obesity and elevated Hg he has some baseline hypoxemia with possible OHS. - Will continue with COVID lab work daily for monitoring of his inflammatory markers. His D-dimer, ferritin have been trending down, and his hemophagocytic lymphohistiocytosis (HLH) score is very low. Would not start him on any remdesivir at this time but continue with supportive measurements. - The patient may potentially benefit from awake proning; however, given his morbid obesity, this may be somewhat technically challenging for the patient. - The patient had a lactic acidosis initially, which did improve with gentle IV hydration. His diuretics are currently on hold. He does have a history of some increased lower extremity edema; however, his BNP was not too elevated. Will continue to monitor closely and would give gentle fluid hydration if needed but would avoid too aggressive fluid hydration due to concern for developing pulmonary edema. Deep vein thrombosis (DVT) prophylaxis. The patient will be on weight-based prophylaxis with Lovenox. CODE STATUS: Discussed with the patient about his code status, and he states he is a DO NOT RESUSCITATE but would like a trial of intubation. He would not want prolonged mechanical ventilation, he states, and he would definitely not want a tracheostomy placement. His medical order for life-sustaining treatment ([facility]) has been updated to reflect this. His healthcare proxy, Britt, which is his eldest daughter, is aware of his wishes. Total critical care time spent, not including procedures, approximately1 hour and 45 minutes. KVNG
[2020-03-19] MEDS: ATORVASTATIN 20 MG TAB PO SCH (17:28)
--- NOTE | 2020-03-19 17:50 | ECGEPIP ---
[facility] - ED Test Date: 2020-03-18 Pat Name: TAMARA CANNON Department: Room: [place] [address] Gender: Male Customer Retention Specialist: talat taylor : 1960 Requested By: PAUL Jacinto Order Number: [id number] Reading MD: Erica Fitzgerald Measurements Intervals [place] Rate: 110 P: 35 [place]: 169 QRS: 18 QRSD: 90 T: 37 QT: 315 QTc: 427 Interpretive Statements SINUS TACHYCARDIA NONSPECIFIC T-WAVE ABNORMALITY ABNORMAL RHYTHM ECG INCREASED RATE/NONSPECIFIC CHANGES COMPARED 03/12/17 Electronically Signed on 03-19-2020 17:50:07 EDT by Erica Fitzgerald
[2020-03-19] MEDS: cefTRIAXone SOD 1 GM in D5W MINI-BAG PLUS 50 ML IV SCH (23:29)
[2020-03-20] VITALS (10 sets, daily range): BP systolic 119–142; BP diastolic 62–81; O2SAT 90–96
[2020-03-20] MEDS: AZITHROMYCIN INJ 500 MG, VIAL MATE ADAPTER 1 EACH in D5W 250 ML IV SCH ×2 (00:05→22:48)
[2020-03-20 05:47] LABS: BASO % 0.2 % (0.0-1.0); HEMATOCRIT 43.8 % (42.0-52.0); HEMOGLOBIN 14.2 g/dl (13.5-17.5); LYMPH # 1.3 10^3/uL (1.5-5.0); LYMPH % 12.7 % (24.0-44.0); MEAN CORPUSCULAR HEMOGLOBIN 28.6 pg (27.0-33.0); MEAN CORPUSCULAR HGB CONC 32.4 g/dl (32.0-36.5); MEAN CORPUSCULAR VOLUME 88.1 fl (80.0-96.0); MONO % 9.1 % (0.0-5.0); NEUTROPHILS # 8.1 10^3/uL (1.5-8.5); NEUTROPHILS % 77.2 % (36.0-66.0); PLATELET COUNT, AUTOMATED 320 10^3/uL (150-450); RED BLOOD COUNT 4.97 10^6/uL (4.30-6.10); WHITE BLOOD COUNT 10.5 10^3/uL (4.0-10.0)
[2020-03-20] MEDS: HumaLOG INSULIN (NovoLOG) PER UNIT SC SCH ×3 (05:56→17:41)
[2020-03-20 06:01] LABS: INR 1.15; PROTHROMBIN TIME 14.4 SECONDS (11.8-14.0)
[2020-03-20 06:04] LABS: D-DIMER QUANT 787.53 ng/ml (<500)
[2020-03-20 06:11] LABS: ALBUMIN 2.7 GM/DL (3.2-5.2); ALT/SGPT 38 U/L (12-78); BILIRUBIN,TOTAL 0.5 MG/DL (0.2-1.0); BLOOD UREA NITROGEN 27 MG/DL (7-18); CALCIUM LEVEL 8.3 MG/DL (8.8-10.2); CARBON DIOXIDE LEVEL 30 MEQ/L (21-32); CHLORIDE LEVEL 101 MEQ/L (98-107); CREATININE FOR GFR 0.72 MG/DL (0.70-1.30); GLOMERULAR FILTRATION RATE > 60.0 (>49); GLUCOSE, FASTING 140 MG/DL (70-100); MAGNESIUM LEVEL 2.8 MG/DL (1.8-2.4); POTASSIUM SERUM 4.1 MEQ/L (3.5-5.1); SODIUM LEVEL 137 MEQ/L (136-145); TOTAL PROTEIN 6.5 GM/DL (6.4-8.2)
[2020-03-20 06:23] LABS: FERRITIN 609 NG/ML (26-388); LDH LACTATE DEHYDROGENASE 478 U/L (87-241); TRIGLYCERIDES LEVEL 244 MG/DL (<150); TROPONIN I < 0.02 NG/ML (< 0.10)
[2020-03-20] MEDS: FLUTICASONE HFA 44 MCG 10.6GM INHALER (FLOVENT) INH SCH ×2 (09:23→20:45)
[2020-03-20] MEDS: ASPIRIN 81 MG ENTERIC TAB PO SCH (09:48)
[2020-03-20] MEDS: ATORVASTATIN 20 MG TAB PO SCH (09:48)
[2020-03-20] MEDS: PREGABALIN 100 MG CAP (LYRICA) PO SCH ×2 (09:48→20:40)
[2020-03-20] MEDS: dexameTHASONE 20MG/5ML VIAL (J1100 PER 1MG) IV SCH (09:49)
[2020-03-20 09:59] LABS: HEPATITIS B SURFACE ANTIGEN NEGATIVE (NEGATIVE)
--- NOTE | 2020-03-20 10:17 | CCN ---
DATE: 03/20/2020 I again attended Krunal Cote. The patient has been examined and the chart reviewed. He is sitting comfortably in a chair with the continuous positive airway pressure (CPAP) in place. He was briefly tried on Vapotherm and although his saturation remained above 90%, he states he is more comfortably on CPAP. Maximum temperature (T-max) overnight 98.8, blood pressure generally around 120 systolic, heart rate in the 80s with a sinus mechanism, respiratory rate 22-26 without accessory muscle use. Saturations remain lowest of 89% and currently is 96% on 80% FiO2 with a CPAP of 16. He reports he does have sleep apnea at home and wears his CPAP at 14 cm of water pressure in the home setting. Intake and output midnight to midnight: 3090 mL in with 3600 mL out. Most recent laboratories show a white blood cell count of 10.5, hemoglobin of 14.2, platelet count of 320,000, 77% segmented neutrophils, no bands. Sodium 137, potassium 4.1, chloride 101, CO2 30, BUN 27, creatinine 0.72. No new blood gas this morning. Serologies all pending. D-dimer continues to decline, down to 787.5 today from a high of 1003 at the time of presentation. On exam, he is awake, alert, appropriate, CPAP mask in place. HEENT: Shows his pupils are reactive, sclerae are clear, trachea is in the midline. Chest is quite clear to both auscultation and percussion, expansion is symmetric. Tactile fremitus palpable. Cardiac exam is regular with no murmur or gallop. Peripheral pulses palpable, no edema. Abdomen is morbidly obese, soft, with active bowel sounds. No convincing organomegaly or masses. Extremities: No cyanosis or clubbing. Neurologic: He is awake, alert, and appropriate. Psychiatric: Normal mood and affect. IMPRESSION: 1. Hypoxemia, multifactorial. 2. COVID-19 related disease. 3. Obstructive apnea syndrome. 4. Non-insulin dependent diabetes mellitus. 5. Underlying hypertension. RECOMMENDATIONS: At this point, we will continue him on continuous positive airway pressure (CPAP). He is drawing excellent tidal volumes. We probably can actually drop his pressures a little bit given the tidal volumes he is drawing, but he is quite comfortable at the moment and we have been able to wean his FiO2. His peak airway pressures remain reasonable. At this point, we will continue the antibiotics as his procalcitonin was 10.48. He does remain on Rocephin and azithromycin. Blood cultures remain negative to date. He remains on dexamethasone and for now we will leave that dose as is. We will continue the current plan of care. Ulcer and deep venous thrombosis (DVT) prophylaxis are in place. The fact that his inflammatory markers are trending in the right direction is promising, but certainly there is always the possibility for further compromise, especially in view of his multisystem dysfunction even prior to presentation. We will proceed as outlined above. Further recommendations will be made in the progress records as new information becomes available. MTDD
[2020-03-20 10:27] LABS: HIV 1&2 SCREEN CENTAUR NEGATIVE (NEGATIVE)
[2020-03-20] MEDS: ENOXAPARIN 80MG/0.8ML SYRINGE (J1650 PER 10MG) SC SCH (12:26)
--- NOTE | 2020-03-20 13:39 | IPNPDOC ---
Text Note Date of Service The patient was seen on 03/20/20. NOTE Subjective: No any acute events overnight. He is breathing via CPAP. Objective: VITAL SIGNS: Please see below. GENERAL: awake, alert, breathing via CPAP, morbidly obese male HEENT: NCAT, anicteric sclera, KYLE NECK: supple, no JVD CARDIOVASCULAR EXAMINATION: Tachycardic, S1-S2 RESPIRATORY EXAMINATION: Rales bilaterally ABDOMINAL EXAMINATION: positive bowel sounds x 4, NT EXTREMITIES: no cyanosis, clubbing, edema SKIN: warm, no rashes. NEUROLOGICAL EXAMINATION: AAO x 3, no motor/sensory deficits Assessment and plan: Patient 59 years old male with past history of HTN, DLP, NIDDM2, DIPTI on CPAP, who presented to the hospital with complaints of worsening shortness of breath and cough. Patient was diagnosed with Covid pneumonia. Acute on chronic respiratory failure Blood gas showed acute hypoxemic respiratory failure Secondary to Covid pneumonia Continue CPAP Continue steroids IV Continue azithromycin IV and ceftriaxone IV Pro calcitonin 10.4 Continue dexamethasone Lactic acidosis Most likely secondary to hypoxemia and metformin Resolved Hypertension Blood pressures under control Continue home cardioprotective medications with parameters Hyperlipidemia Continue with atorvastatin Diabetes type 2 Insulin sliding scale Diabetes diet VS,Fishbone, I+O VS, Fishbone, I+O Laboratory Tests 03/20/20 05:27 Vital Signs Date Time Temp Pulse Resp B/P (MAP) Pulse Ox O2 Delivery O2 Flow Rate FiO2 03/20/20 12:00 80 03/20/20 12:00 94 NIPPV (BIPAP/CPAP) 03/20/20 12:00 97.7 68 26 137/81 (99) 03/20/20 06:04 40.0 I&O- Last 24 Hours up to 6 AM 03/20/20 06:00 Intake Total 2865 ml Output Total 2600 ml Balance 265 ml JIHAN NARANJO DO Mar 20, 2020 13:39
[2020-03-20 17:07] LABS: HEPATITIS B CORE ANTIBODY IGG Negative (Negative); MYCOPLASMA PNEUMONIAE IgG 1873 U/mL (0-99); MYCOPLASMA PNEUMONIAE IgM <770 U/mL (0-769)
[2020-03-20] MEDS: PANTOPRAZOLE 40MG VIAL (C9113 PER 1) IV SCH (20:41)
[2020-03-20] MEDS: cefTRIAXone SOD 1 GM in D5W MINI-BAG PLUS 50 ML IV SCH (22:04)
[2020-03-21] VITALS: BP 125/65; O2SAT 92
[2020-03-21] MEDS: ENOXAPARIN 80MG/0.8ML SYRINGE (J1650 PER 10MG) SC SCH (00:09)
[2020-03-21] MEDS: HumaLOG INSULIN (NovoLOG) PER UNIT SC SCH ×2 (00:44→06:00)
[2020-03-21 04:00] VITALS: BP 113/60; O2SAT 86
[2020-03-21 04:20] VITALS: O2SAT 90
[2020-03-21 06:23] LABS: BASO % 0.3 % (0.0-1.0); HEMATOCRIT 42.6 % (42.0-52.0); LYMPH # 1.5 10^3/uL (1.5-5.0); LYMPH % 15.5 % (24.0-44.0); MEAN CORPUSCULAR HGB CONC 32.9 g/dl (32.0-36.5); MEAN CORPUSCULAR VOLUME 88.2 fl (80.0-96.0); MONO # 0.9 10^3/uL (0.0-0.8); MONO % 9.8 % (0.0-5.0); NEUTROPHILS # 7.1 10^3/uL (1.5-8.5); NEUTROPHILS % 73.3 % (36.0-66.0); PLATELET COUNT, AUTOMATED 348 10^3/uL (150-450); RED BLOOD COUNT 4.83 10^6/uL (4.30-6.10); WHITE BLOOD COUNT 9.6 10^3/uL (4.0-10.0)
[2020-03-21] MEDS ORDERED: ACETAMINOPHEN TAB 650MG DOSE (2X325MG) PO PRN (06:30)
[2020-03-21 06:33] LABS: INR 1.13; PROTHROMBIN TIME 14.2 SECONDS (11.8-14.0)
[2020-03-21 06:34] LABS: PARTIAL THROMBOPLASTIN TIME 33.9 SECONDS (25.0-38.4)
[2020-03-21 06:36] LABS: D-DIMER QUANT 879.66 ng/ml (<500)
[2020-03-21 06:57] LABS: C REACTIVE PROTEIN QUANTITATIV 7.16 MG/DL (0.00-0.30)
[2020-03-21 06:58] LABS: ALBUMIN 2.7 GM/DL (3.2-5.2); ALT/SGPT 34 U/L (12-78); BILIRUBIN,TOTAL 0.7 MG/DL (0.2-1.0); BLOOD UREA NITROGEN 26 MG/DL (7-18); CALCIUM LEVEL 8.7 MG/DL (8.8-10.2); CARBON DIOXIDE LEVEL 29 MEQ/L (21-32); CHLORIDE LEVEL 101 MEQ/L (98-107); CREATININE FOR GFR 0.69 MG/DL (0.70-1.30); GLOMERULAR FILTRATION RATE > 60.0 (>49); GLUCOSE, FASTING 116 MG/DL (70-100); MAGNESIUM LEVEL 2.8 MG/DL (1.8-2.4); POTASSIUM SERUM 4.2 MEQ/L (3.5-5.1); SODIUM LEVEL 140 MEQ/L (136-145); TOTAL PROTEIN 6.3 GM/DL (6.4-8.2)
[2020-03-21] MEDS: PREGABALIN 100 MG CAP (LYRICA) PO SCH (07:48)
[2020-03-21] MEDS: ASPIRIN 81 MG ENTERIC TAB PO SCH (07:48)
[2020-03-21] MEDS: ATORVASTATIN 20 MG TAB PO SCH (07:48)
[2020-03-21] MEDS: dexameTHASONE 20MG/5ML VIAL (J1100 PER 1MG) IV SCH (07:48)
[2020-03-21] MEDS: FLUTICASONE HFA 44 MCG 10.6GM INHALER (FLOVENT) INH SCH (07:49)
[2020-03-21 07:50] VITALS: BP 126/69; O2SAT 94
--- NOTE | 2020-03-21 10:41 | IPN ---
DATE: 03/21/2020 CRITICAL CARE PROGRESS NOTE SUBJECTIVE: I spoke at length with the patient, as well as the nurse at the bedside. Mr. Cote remains intermittently on CPAP. He is down to 80% to 85% FiO2 and maintaining saturations generally between 90% and 95%. He is quite comfortable when he is on it. VITAL SIGNS: T-max overnight 97.7, blood pressure generally one-teens to 120s, heart rate in the 60s, respiratory rate in the 20s. Is and Os from midnight to midnight 2905 mL in with 1250 mL out. IMAGING STUDIES: No new imaging. OBJECTIVE: GENERAL: On exam, he is awake, alert and appropriate. Laying comfortable in bed. HEENT: Normocephalic, atraumatic. Pupils do react. CPAP mask in place. Trachea is in the midline. CHEST: Fairly clear to both auscultation and percussion. No other focal adventitious breath sounds are identified. Tactile fremitus palpable throughout. CARDIAC: Distant, but regular. Peripheral pulses palpable. Trace edema. ABDOMEN: Obese, but benign without cyanosis or clubbing. NEUROLOGIC: Awake, alert, and appropriate. PSYCH: Normal mood and affect. LABORATORY DATA: White blood cell count 9.6, hemoglobin 14.0, platelet count 73,000 and no bands. Sodium 140, K 4.2, chloride 101, CO2 of 29, BUN 26, creatinine 0.69. IMPRESSION: 1. Hypoxemic, multifactorial. 2. COVID-19 related disease. 3. Insulin-dependent diabetes mellitus. 4. Obstructive sleep apnea syndrome. RECOMMENDATIONS: At this point, he is tolerating noninvasive therapy and making some improvements. We will continue his current steroid. When he is on Vapotherm, we will allow him more calories. Hopefully, in the form of Ensure or some liquid nutrition as he is hungry. At this point, I am in agreement with his current antimicrobials since his procalcitonin was elevated. We will continue as outlined above. Certainly in view of his presentation, he is always at risk for compromise. Further recommendations will be made in the progress record as new information is available.
--- NOTE | 2020-03-21 11:45 | IPNPDOC ---
Text Note Date of Service The patient was seen on 03/21/20. NOTE Subjective: No any acute events overnight. He is breathing via CPAP with good oxygen saturation around 90-95% Objective: VITAL SIGNS: Please see below. GENERAL: awake, alert, breathing via CPAP, morbidly obese male HEENT: NCAT, anicteric sclera, KYLE NECK: supple, no JVD CARDIOVASCULAR EXAMINATION: Tachycardic, S1-S2 RESPIRATORY EXAMINATION: Rales bilaterally ABDOMINAL EXAMINATION: positive bowel sounds x 4, NT EXTREMITIES: no cyanosis, clubbing, edema SKIN: warm, no rashes. NEUROLOGICAL EXAMINATION: AAO x 3, no motor/sensory deficits Assessment and plan: Patient 59 years old male with past history of HTN, DLP, NIDDM2, DIPTI on CPAP, who presented to the hospital with complaints of worsening shortness of breath and cough. Patient was diagnosed with Covid pneumonia. Acute on chronic respiratory failure Blood gas showed acute hypoxemic respiratory failure Secondary to Covid pneumonia Continue CPAP Continue azithromycin IV and ceftriaxone IV Pro calcitonin 10.4 Continue dexamethasone Lactic acidosis Most likely secondary to hypoxemia and metformin Resolved Hypertension Blood pressures under control Continue home cardioprotective medications with parameters Hyperlipidemia Continue with atorvastatin Diabetes type 2 Insulin sliding scale Diabetes diet VS,Fishbone, I+O VS, Fishbone, I+O Laboratory Tests 03/21/20 05:58 Vital Signs Date Time Temp Pulse Resp B/P (MAP) Pulse Ox O2 Delivery O2 Flow Rate FiO2 03/21/20 08:00 85 03/21/20 07:50 94 NIPPV (BIPAP/CPAP) 03/21/20 07:50 97.4 62 23 126/69 (88) 03/20/20 17:00 40.0 I&O- Last 24 Hours up to 6 AM 03/21/20 05:59 Intake Total 2705 ml Output Total 1950 ml Balance 755 ml JIHAN NARANJO DO Mar 21, 2020 11:45
[2020-03-23] MEDS ORDERED: ENOXAPARIN 80MG/0.8ML SYRINGE (J1650 PER 10MG) ONE ×2 (00:36→12:32)
[2020-03-23] MEDS ORDERED: dexameTHASONE 20MG/5ML VIAL (J1100 PER 1MG) ONE (08:28)
[2020-03-23] MEDS ORDERED: PREGABALIN 100 MG CAP (LYRICA) ONE ×2 (08:28→21:17)
[2020-03-23] MEDS ORDERED: ASPIRIN 81 MG ENTERIC TAB ONE (08:28)
[2020-03-23] MEDS ORDERED: ATORVASTATIN 20 MG TAB ONE (08:28)
[2020-03-23] MEDS ORDERED: FLUTICASONE HFA 44 MCG 10.6GM INHALER (FLOVENT) ONE (10:00)
[2020-03-23] MEDS ORDERED: HumaLOG INSULIN (NovoLOG) PER UNIT ONE ×2 (12:32→17:06)
[2020-03-23] MEDS ORDERED: HumaLOG INSULIN (NovoLOG) PER UNIT As Ordered ONE ×2 (12:39→17:06)
[2020-03-23] MEDS ORDERED: PANTOPRAZOLE 40MG VIAL (C9113 PER 1) ONE (21:17)
[2020-03-23] MEDS ORDERED: cefTRIAXone SOD 1GM VIAL (J0696 PER 250MG) As Ordered ONE (21:17)
[2020-03-23] MEDS ORDERED: AMITRIPTYLINE 25 MG TAB ONE (21:17)
[2020-03-23] MEDS ORDERED: cefTRIAXone SOD 1GM VIAL (J0696 PER 250MG) ONE (21:17)
[2020-03-23] MEDS ORDERED: AZITHROMYCIN INJ 500MG VIAL (J0456 PER 500MG) ONE (21:19)
[2020-03-24] MEDS ORDERED: HumaLOG INSULIN (NovoLOG) PER UNIT ONE ×3 (08:21→18:14)
[2020-03-24] MEDS ORDERED: dexameTHASONE 20MG/5ML VIAL (J1100 PER 1MG) ONE (08:21)
[2020-03-24] MEDS ORDERED: PREGABALIN 100 MG CAP (LYRICA) ONE ×2 (08:21→20:15)
[2020-03-24] MEDS ORDERED: ATORVASTATIN 20 MG TAB ONE (08:21)
[2020-03-24] MEDS ORDERED: ASPIRIN 81 MG ENTERIC TAB ONE (08:21)
[2020-03-24] MEDS ORDERED: LevoFLOXacin 500 MG TABLET ONE (08:23)
[2020-03-24] MEDS ORDERED: HumaLOG INSULIN (NovoLOG) PER UNIT As Ordered ONE ×3 (08:23→18:14)
[2020-03-24] MEDS ORDERED: FLUTICASONE HFA 44 MCG 10.6GM INHALER (FLOVENT) ONE (10:00)
[2020-03-24] MEDS ORDERED: ENOXAPARIN 80MG/0.8ML SYRINGE (J1650 PER 10MG) ONE (12:47)
[2020-03-24] MEDS ORDERED: AMITRIPTYLINE 25 MG TAB ONE ×2 (13:00→20:15)
[2020-03-24] MEDS ORDERED: PANTOPRAZOLE 40MG VIAL (C9113 PER 1) ONE (20:15)
[2020-03-24] MEDS ORDERED: LevoFLOXacin 500 MG TABLET As Ordered ONE (20:23)
[2020-03-25] MEDS ORDERED: PREGABALIN 100 MG CAP (LYRICA) ONE ×2 (05:08→12:00)
[2020-03-25] MEDS ORDERED: HumaLOG INSULIN (NovoLOG) PER UNIT ONE ×4 (05:08→12:13)
[2020-03-25] MEDS ORDERED: PANTOPRAZOLE 40MG VIAL (C9113 PER 1) ONE (05:08)
[2020-03-25] MEDS ORDERED: AMITRIPTYLINE 25 MG TAB ONE ×2 (05:08→11:30)
[2020-03-25] MEDS ORDERED: LevoFLOXacin 500 MG TABLET ONE (08:05)
[2020-03-25] MEDS ORDERED: HumaLOG INSULIN (NovoLOG) PER UNIT As Ordered ONE ×4 (08:09→20:05)
[2020-03-25] MEDS ORDERED: FLUTICASONE HFA 44 MCG 10.6GM INHALER (FLOVENT) ONE (10:00)
[2020-03-25] MEDS ORDERED: ENOXAPARIN 80MG/0.8ML SYRINGE (J1650 PER 10MG) ONE ×2 (12:00→12:13)
[2020-03-25] MEDS ORDERED: ATORVASTATIN 20 MG TAB ONE (12:00)
[2020-03-25] MEDS ORDERED: ASPIRIN 81 MG ENTERIC TAB ONE (12:00)
[2020-03-25] MEDS ORDERED: dexameTHASONE 20MG/5ML VIAL (J1100 PER 1MG) ONE (12:00)
[2020-03-25] MEDS ORDERED: LevoFLOXacin 500 MG TABLET As Ordered ONE (19:54)
[2020-03-26] MEDS ORDERED: ENOXAPARIN 80MG/0.8ML SYRINGE (J1650 PER 10MG) ONE ×3 (00:21→23:29)
[2020-03-26] MEDS ORDERED: dexameTHASONE 20MG/5ML VIAL (J1100 PER 1MG) ONE (09:32)
[2020-03-26] MEDS ORDERED: HumaLOG INSULIN (NovoLOG) PER UNIT ONE ×4 (09:32→21:13)
[2020-03-26] MEDS ORDERED: ATORVASTATIN 20 MG TAB ONE (09:32)
[2020-03-26] MEDS ORDERED: PREGABALIN 100 MG CAP (LYRICA) ONE ×2 (09:32→20:40)
[2020-03-26] MEDS ORDERED: ASPIRIN 81 MG ENTERIC TAB ONE (09:32)
[2020-03-26] MEDS ORDERED: HumaLOG INSULIN (NovoLOG) PER UNIT As Ordered ONE ×4 (09:35→21:13)
[2020-03-26] MEDS ORDERED: FLUTICASONE HFA 44 MCG 10.6GM INHALER (FLOVENT) ONE (10:00)
[2020-03-26] MEDS ORDERED: LevoFLOXacin 500 MG TABLET ONE (14:00)
[2020-03-26] MEDS ORDERED: PANTOPRAZOLE 40MG VIAL (C9113 PER 1) ONE (20:40)
[2020-03-26] MEDS ORDERED: AMITRIPTYLINE 25 MG TAB ONE (20:40)
[2020-03-27] MEDS ORDERED: dexameTHASONE 20MG/5ML VIAL (J1100 PER 1MG) ONE (08:42)
[2020-03-27] MEDS ORDERED: ATORVASTATIN 20 MG TAB ONE (08:42)
[2020-03-27] MEDS ORDERED: PREGABALIN 100 MG CAP (LYRICA) ONE ×2 (08:43→20:51)
[2020-03-27] MEDS ORDERED: HumaLOG INSULIN (NovoLOG) PER UNIT ONE ×4 (08:43→20:59)
[2020-03-27] MEDS ORDERED: HumaLOG INSULIN (NovoLOG) PER UNIT As Ordered ONE ×4 (08:43→20:59)
[2020-03-27] MEDS ORDERED: ASPIRIN 81 MG ENTERIC TAB ONE (08:44)
[2020-03-27] MEDS ORDERED: FLUTICASONE HFA 44 MCG 10.6GM INHALER (FLOVENT) ONE (10:00)
[2020-03-27] MEDS ORDERED: ENOXAPARIN 80MG/0.8ML SYRINGE (J1650 PER 10MG) ONE ×2 (11:58→22:56)
[2020-03-27] MEDS ORDERED: PANTOPRAZOLE 40MG VIAL (C9113 PER 1) ONE (20:51)
[2020-03-28] MEDS ORDERED: dexameTHASONE 20MG/5ML VIAL (J1100 PER 1MG) ONE (08:36)
[2020-03-28] MEDS ORDERED: ATORVASTATIN 20 MG TAB ONE (08:36)
[2020-03-28] MEDS ORDERED: ASPIRIN 81 MG ENTERIC TAB ONE (08:36)
[2020-03-28] MEDS ORDERED: PREGABALIN 100 MG CAP (LYRICA) ONE ×2 (08:36→20:54)
[2020-03-28] MEDS ORDERED: HumaLOG INSULIN (NovoLOG) PER UNIT ONE ×4 (08:57→21:07)
[2020-03-28] MEDS ORDERED: HumaLOG INSULIN (NovoLOG) PER UNIT As Ordered ONE ×4 (08:57→21:07)
[2020-03-28] MEDS ORDERED: FLUTICASONE HFA 44 MCG 10.6GM INHALER (FLOVENT) ONE (10:00)
[2020-03-28] MEDS ORDERED: LevoFLOXacin 500 MG TABLET ONE (10:51)
[2020-03-28] MEDS ORDERED: ENOXAPARIN 80MG/0.8ML SYRINGE (J1650 PER 10MG) ONE ×2 (13:03→23:28)
[2020-03-28] MEDS ORDERED: PANTOPRAZOLE 40MG VIAL (C9113 PER 1) ONE (20:54)
[2020-03-29] MEDS ORDERED: HumaLOG INSULIN (NovoLOG) PER UNIT As Ordered ONE ×4 (08:40→22:21)
[2020-03-29] MEDS ORDERED: ATORVASTATIN 20 MG TAB ONE (08:42)
[2020-03-29] MEDS ORDERED: ASPIRIN 81 MG ENTERIC TAB ONE (08:42)
[2020-03-29] MEDS ORDERED: dexameTHASONE 4 MG/ML 1ML VIAL (J1100 PER 1MG) As Ordered ONE (08:42)
[2020-03-29] MEDS ORDERED: PREGABALIN 100 MG CAP (LYRICA) ONE ×2 (08:42→21:52)
[2020-03-29] MEDS ORDERED: dexameTHASONE 20MG/5ML VIAL (J1100 PER 1MG) ONE (09:13)
[2020-03-29] MEDS ORDERED: FLUTICASONE HFA 44 MCG 10.6GM INHALER (FLOVENT) ONE (10:00)
[2020-03-29] MEDS ORDERED: AMITRIPTYLINE 25 MG TAB ONE (11:00)
[2020-03-29] MEDS ORDERED: LevoFLOXacin 500 MG TABLET ONE (11:00)
[2020-03-29] MEDS ORDERED: ENOXAPARIN 80MG/0.8ML SYRINGE (J1650 PER 10MG) ONE (13:22)
[2020-03-29] MEDS ORDERED: PANTOPRAZOLE 40MG VIAL (C9113 PER 1) ONE (21:52)
[2020-03-29] MEDS ORDERED: LevoFLOXacin 500MG/100ML IV BAG (J1956 PER 250MG) As Ordered ONE (21:53)
[2020-03-30] MEDS ORDERED: ACETAMINOPHEN TAB 650MG DOSE (2X325MG) ONE (04:30)
[2020-03-30] MEDS ORDERED: ASPIRIN 81 MG ENTERIC TAB ONE (09:29)
[2020-03-30] MEDS ORDERED: dexameTHASONE 20MG/5ML VIAL (J1100 PER 1MG) ONE (09:29)
[2020-03-30] MEDS ORDERED: ATORVASTATIN 20 MG TAB ONE (09:29)
[2020-03-30] MEDS ORDERED: PREGABALIN 100 MG CAP (LYRICA) ONE ×2 (09:29→20:39)
[2020-03-30] MEDS ORDERED: ENOXAPARIN 40MG/0.4ML SYRINGE (J1650 PER 10MG) As Ordered ONE (09:37)
[2020-03-30] MEDS ORDERED: HumaLOG INSULIN (NovoLOG) PER UNIT As Ordered ONE ×4 (09:58→21:18)
[2020-03-30] MEDS ORDERED: FLUTICASONE HFA 44 MCG 10.6GM INHALER (FLOVENT) ONE (10:00)
[2020-03-31] MEDS ORDERED: FLUTICASONE HFA 44 MCG 10.6GM INHALER (FLOVENT) ONE (10:00)
[2020-03-31] MEDS ORDERED: PREGABALIN 100 MG CAP (LYRICA) ONE ×2 (10:06→20:30)
[2020-03-31] MEDS ORDERED: ASPIRIN 81 MG ENTERIC TAB ONE (10:06)
[2020-03-31] MEDS ORDERED: ATORVASTATIN 20 MG TAB ONE (10:06)
[2020-03-31] MEDS ORDERED: PANTOPRAZOLE 40MG TAB (PROTONIX) As Ordered ONE (10:07)
[2020-03-31] MEDS ORDERED: ENOXAPARIN 40MG/0.4ML SYRINGE (J1650 PER 10MG) As Ordered ONE (10:08)
[2020-03-31] MEDS ORDERED: HumaLOG INSULIN (NovoLOG) PER UNIT As Ordered ONE ×4 (10:08→20:53)
[2020-03-31] MEDS ORDERED: LEVEMIR (INSULIN DETEMIR) 1 UNITS/0.01ML As Ordered ONE (10:10)
[2020-04-01] MEDS ORDERED: ATORVASTATIN 20 MG TAB ONE (08:53)
[2020-04-01] MEDS ORDERED: ASPIRIN 81 MG ENTERIC TAB ONE (08:53)
[2020-04-01] MEDS ORDERED: PANTOPRAZOLE 40MG TAB (PROTONIX) As Ordered ONE (08:53)
[2020-04-01] MEDS ORDERED: PREGABALIN 100 MG CAP (LYRICA) ONE ×2 (08:53→20:39)
[2020-04-01] MEDS ORDERED: ENOXAPARIN 40MG/0.4ML SYRINGE (J1650 PER 10MG) As Ordered ONE (08:54)
[2020-04-01] MEDS ORDERED: HumaLOG INSULIN (NovoLOG) PER UNIT As Ordered ONE ×4 (08:54→20:50)
[2020-04-01] MEDS ORDERED: FUROSEMIDE 40MG/4ML VIAL (J1940) As Ordered ONE (08:56)
[2020-04-01] MEDS ORDERED: LEVEMIR (INSULIN DETEMIR) 1 UNITS/0.01ML As Ordered ONE ×2 (08:57→20:40)
[2020-04-01] MEDS ORDERED: FLUTICASONE HFA 44 MCG 10.6GM INHALER (FLOVENT) ONE (10:00)
[2020-04-01] MEDS ORDERED: MAGNESIUM SULFATE 1GM/100ML D5W BAG (10MG/ML) As Ordered ONE ×2 (11:21→17:06)
[2020-04-01] MEDS ORDERED: LevoFLOXacin 500 MG TABLET ONE (12:52)
[2020-04-01] MEDS ORDERED: AMITRIPTYLINE 25 MG TAB ONE (12:52)
[2020-04-02] MEDS ORDERED: PANTOPRAZOLE 40MG TAB (PROTONIX) As Ordered ONE (08:47)
[2020-04-02] MEDS ORDERED: HumaLOG INSULIN (NovoLOG) PER UNIT As Ordered ONE ×3 (08:48→22:46)
[2020-04-02] MEDS ORDERED: ENOXAPARIN 40MG/0.4ML SYRINGE (J1650 PER 10MG) As Ordered ONE (08:49)
[2020-04-02] MEDS ORDERED: ASPIRIN 81 MG ENTERIC TAB ONE (08:49)
[2020-04-02] MEDS ORDERED: PREGABALIN 100 MG CAP (LYRICA) ONE ×2 (08:49→22:46)
[2020-04-02] MEDS ORDERED: ATORVASTATIN 20 MG TAB ONE (08:49)
[2020-04-02] MEDS ORDERED: LEVEMIR (INSULIN DETEMIR) 1 UNITS/0.01ML As Ordered ONE ×2 (08:51→22:49)
[2020-04-02] MEDS ORDERED: FLUTICASONE HFA 44 MCG 10.6GM INHALER (FLOVENT) ONE (10:00)
[2020-04-02] MEDS ORDERED: FUROSEMIDE 20MG/2ML VIAL (J1940) As Ordered ONE ×2 (14:51→22:47)
[2020-04-02] MEDS ORDERED: POTASSIUM CHLORIDE 10 MEQ SR TABLET As Ordered ONE ×2 (14:56→22:46)
[2020-04-02] MEDS ORDERED: FUROSEMIDE 20MG/2ML VIAL (J1940) ONE (22:46)
[2020-04-02] MEDS ORDERED: LEVEMIR (INSULIN DETEMIR) 1 UNITS/0.01ML ONE (22:46)
[2020-04-02] MEDS ORDERED: PREGABALIN 100 MG CAP (LYRICA) As Ordered ONE (22:46)
[2020-04-02] MEDS ORDERED: HumaLOG INSULIN (NovoLOG) PER UNIT ONE (22:46)
[2020-04-02] MEDS ORDERED: POTASSIUM CHLORIDE 10 MEQ SR TABLET ONE (22:46)
[2020-04-03] MEDS ORDERED: FUROSEMIDE 20MG/2ML VIAL (J1940) ONE (06:02)
[2020-04-03] MEDS ORDERED: FUROSEMIDE 20MG/2ML VIAL (J1940) As Ordered ONE (06:02)
[2020-04-03] MEDS ORDERED: PREGABALIN 100 MG CAP (LYRICA) ONE ×2 (09:23→21:09)
[2020-04-03] MEDS ORDERED: ATORVASTATIN 20 MG TAB ONE (09:23)
[2020-04-03] MEDS ORDERED: LEVEMIR (INSULIN DETEMIR) 1 UNITS/0.01ML ONE ×2 (09:23→21:09)
[2020-04-03] MEDS ORDERED: POTASSIUM CHLORIDE 10 MEQ SR TABLET ONE ×2 (09:23→21:09)
[2020-04-03] MEDS ORDERED: ASPIRIN 81 MG ENTERIC TAB ONE (09:23)
[2020-04-03] MEDS ORDERED: HumaLOG INSULIN (NovoLOG) PER UNIT ONE ×3 (09:23→16:53)
[2020-04-03] MEDS ORDERED: PANTOPRAZOLE 40MG TAB (PROTONIX) ONE (09:23)
[2020-04-03] MEDS ORDERED: HumaLOG INSULIN (NovoLOG) PER UNIT As Ordered ONE ×4 (09:23→21:39)
[2020-04-03] MEDS ORDERED: ATORVASTATIN 20 MG TAB As Ordered ONE (09:23)
[2020-04-03] MEDS ORDERED: POTASSIUM CHLORIDE 10 MEQ SR TABLET As Ordered ONE ×2 (09:24→21:09)
[2020-04-03] MEDS ORDERED: ASPIRIN 81 MG ENTERIC TAB As Ordered ONE (09:24)
[2020-04-03] MEDS ORDERED: PREGABALIN 100 MG CAP (LYRICA) As Ordered ONE ×2 (09:24→21:09)
[2020-04-03] MEDS ORDERED: PANTOPRAZOLE 40MG TAB (PROTONIX) As Ordered ONE (09:24)
[2020-04-03] MEDS ORDERED: LEVEMIR (INSULIN DETEMIR) 1 UNITS/0.01ML As Ordered ONE ×2 (09:25→21:10)
[2020-04-03] MEDS ORDERED: FLUTICASONE HFA 44 MCG 10.6GM INHALER (FLOVENT) ONE (10:00)
[2020-04-03] MEDS ORDERED: AMITRIPTYLINE 25 MG TAB ONE (11:00)
[2020-04-03] MEDS ORDERED: ACETAMINOPHEN TAB 650MG DOSE (2X325MG) ONE (16:53)
[2020-04-03] MEDS ORDERED: ACETAMINOPHEN TAB 650MG DOSE (2X325MG) As Ordered ONE (16:53)
[2020-04-04] MEDS ORDERED: ASPIRIN 81 MG ENTERIC TAB ONE (08:49)
[2020-04-04] MEDS ORDERED: ATORVASTATIN 20 MG TAB As Ordered ONE (08:49)
[2020-04-04] MEDS ORDERED: HumaLOG INSULIN (NovoLOG) PER UNIT ONE ×4 (08:49→20:43)
[2020-04-04] MEDS ORDERED: PREGABALIN 100 MG CAP (LYRICA) ONE ×2 (08:49→20:43)
[2020-04-04] MEDS ORDERED: HumaLOG INSULIN (NovoLOG) PER UNIT As Ordered ONE ×4 (08:49→20:43)
[2020-04-04] MEDS ORDERED: LEVEMIR (INSULIN DETEMIR) 1 UNITS/0.01ML ONE ×2 (08:49→20:43)
[2020-04-04] MEDS ORDERED: PANTOPRAZOLE 40MG TAB (PROTONIX) ONE (08:49)
[2020-04-04] MEDS ORDERED: ATORVASTATIN 20 MG TAB ONE (08:49)
[2020-04-04] MEDS ORDERED: POTASSIUM CHLORIDE 10 MEQ SR TABLET ONE ×2 (08:49→20:43)
[2020-04-04] MEDS ORDERED: ASPIRIN 81 MG ENTERIC TAB As Ordered ONE (08:50)
[2020-04-04] MEDS ORDERED: PANTOPRAZOLE 40MG TAB (PROTONIX) As Ordered ONE (08:50)
[2020-04-04] MEDS ORDERED: POTASSIUM CHLORIDE 10 MEQ SR TABLET As Ordered ONE ×2 (08:50→20:45)
[2020-04-04] MEDS ORDERED: PREGABALIN 100 MG CAP (LYRICA) As Ordered ONE ×2 (08:51→20:44)
[2020-04-04] MEDS ORDERED: LEVEMIR (INSULIN DETEMIR) 1 UNITS/0.01ML As Ordered ONE ×2 (08:52→20:46)
[2020-04-04] MEDS ORDERED: FLUTICASONE HFA 44 MCG 10.6GM INHALER (FLOVENT) ONE (10:00)
[2020-04-04] MEDS ORDERED: FUROSEMIDE 20 MG TAB As Ordered ONE (12:34)
[2020-04-04] MEDS ORDERED: FUROSEMIDE 20 MG TAB ONE (12:34)
[2020-04-05] MEDS ORDERED: FLUTICASONE HFA 44 MCG 10.6GM INHALER (FLOVENT) ONE (10:00)
[2020-05-01 11:40] LABS: BASO % 0.2 % (0.0-1.0); EOS # 0.2 10^3/uL (0.0-0.5); EOS % 1.5 % (0.0-3.0); HEMATOCRIT 43.6 % (42.0-52.0); HEMOGLOBIN 14.3 g/dl (13.5-17.5); LYMPH # 1.8 10^3/uL (1.5-5.0); LYMPH % 14.4 % (24.0-44.0); MEAN CORPUSCULAR HEMOGLOBIN 29.1 pg (27.0-33.0); MEAN CORPUSCULAR HGB CONC 32.8 g/dl (32.0-36.5); MEAN CORPUSCULAR VOLUME 88.8 fl (80.0-96.0); MONO # 0.9 10^3/uL (0.0-0.8); MONO % 7.6 % (0.0-5.0); NEUTROPHILS # 9.1 10^3/uL (1.5-8.5); NEUTROPHILS % 74.3 % (36.0-66.0); PLATELET COUNT, AUTOMATED 414 10^3/uL (150-450); RED BLOOD COUNT 4.91 10^6/uL (4.30-6.10); WHITE BLOOD COUNT 12.3 10^3/uL (4.0-10.0)
[2020-05-01 11:56] LABS: INR 1.06; PARTIAL THROMBOPLASTIN TIME 31.2 SECONDS (25.0-38.4)
[2020-05-01 15:02] LABS: HEMATOCRIT 44.3 % (42.0-52.0); HEMOGLOBIN 14.6 g/dl (13.5-17.5); MEAN CORPUSCULAR HEMOGLOBIN 28.7 pg (27.0-33.0); MEAN CORPUSCULAR VOLUME 87.2 fl (80.0-96.0); PLATELET COUNT, AUTOMATED 408 10^3/uL (150-450); RED BLOOD COUNT 5.08 10^6/uL (4.30-6.10); WHITE BLOOD COUNT 10.2 10^3/uL (4.0-10.0)
[2020-05-01 15:15] LABS: INR 1.08; PARTIAL THROMBOPLASTIN TIME 32.6 SECONDS (25.0-38.4); PROTHROMBIN TIME 14.2 SECONDS (11.8-14.0)
[2020-05-06 23:23] LABS: HEMATOCRIT 43.2 % (42.0-52.0); HEMOGLOBIN 14.5 g/dl (13.5-17.5); MEAN CORPUSCULAR HEMOGLOBIN 29.2 pg (27.0-33.0); MEAN CORPUSCULAR HGB CONC 33.6 g/dl (32.0-36.5); MEAN CORPUSCULAR VOLUME 87.1 fl (80.0-96.0); PLATELET COUNT, AUTOMATED 438 10^3/uL (150-450); RED BLOOD COUNT 4.96 10^6/uL (4.30-6.10); WHITE BLOOD COUNT 10.5 10^3/uL (4.0-10.0)
[2020-05-07 12:16] LABS: BLOOD UREA NITROGEN 15 MG/DL (7-18); CARBON DIOXIDE LEVEL 28 mmol/L (20-29); CHLORIDE LEVEL 105 MEQ/L (98-107); CREATININE FOR GFR 0.75 MG/DL (0.70-1.30); GLOMERULAR FILTRATION RATE > 60.0 (>49); GLUCOSE, FASTING 148 MG/DL (70-100); POTASSIUM SERUM 4.2 MEQ/L (3.5-5.1); SODIUM LEVEL 140 MEQ/L (136-145)
[2020-05-07 12:17] LABS: ALBUMIN 2.4 GM/DL (3.2-5.2); ALT/SGPT 75 IU/L (0-32); BILIRUBIN,TOTAL 0.5 MG/DL (0.2-1.0); CALCIUM LEVEL 8.5 MG/DL (8.8-10.2); CHOLESTEROL LEVEL 119 MG/DL (<200); HDL CHOLESTEROL 28 MG/DL (>40); LDL CHOLESTEROL 65.6 MG/DL (<100); MAGNESIUM LEVEL 1.8 MG/DL (1.8-2.4); NON-HDL-C 91 MG/DL; TOTAL PROTEIN 6.1 GM/DL (6.4-8.2); TRIGLYCERIDES LEVEL 127 MG/DL (<150)
[2020-05-07 12:18] LABS: C REACTIVE PROTEIN QUANTITATIV 4.78 MG/DL (0.00-0.30); LIPASE 193 U/L (73-393)
[2020-05-07 14:57] LABS: ALT/SGPT 69 IU/L (0-32); BILIRUBIN,TOTAL 0.6 MG/DL (0.2-1.0); BLOOD UREA NITROGEN 15 MG/DL (7-18); CALCIUM LEVEL 8.8 MG/DL (8.8-10.2); CARBON DIOXIDE LEVEL 28 mmol/L (20-29); CHLORIDE LEVEL 103 MEQ/L (98-107); CREATININE FOR GFR 0.71 MG/DL (0.70-1.30); GLOMERULAR FILTRATION RATE > 60.0 (>49); GLUCOSE, FASTING 186 MG/DL (70-100); POTASSIUM SERUM 4.6 MEQ/L (3.5-5.1); SODIUM LEVEL 138 MEQ/L (136-145)
[2020-05-07 14:58] LABS: ALBUMIN 2.5 GM/DL (3.2-5.2); C REACTIVE PROTEIN QUANTITATIV 5.76 MG/DL (0.00-0.30); MAGNESIUM LEVEL 1.7 MG/DL (1.8-2.4); TOTAL PROTEIN 6.1 GM/DL (6.4-8.2)
[2020-05-07 21:49] LABS: MAGNESIUM LEVEL 1.9 MG/DL (1.8-2.4); POTASSIUM SERUM 4.2 MEQ/L (3.5-5.1)
[2020-05-09 18:43] LABS: BLOOD UREA NITROGEN 17 MG/DL (7-18); CALCIUM LEVEL 8.9 MG/DL (8.8-10.2); CARBON DIOXIDE LEVEL 30 MEQ/L (21-32); CHLORIDE LEVEL 101 MEQ/L (98-107); CREATININE FOR GFR 0.78 MG/DL (0.70-1.30); GLOMERULAR FILTRATION RATE > 60.0 (>49); GLUCOSE, FASTING 202 MG/DL (70-100); POTASSIUM SERUM 4.4 MEQ/L (3.5-5.1); SODIUM LEVEL 139 MEQ/L (136-145)
[2020-05-16 23:14] LABS: BASO % 0.1 % (0.0-1.0); EOS # 0.2 10^3/uL (0.0-0.5); HEMATOCRIT 43.8 % (42.0-52.0); HEMOGLOBIN 14.7 g/dl (13.5-17.5); LYMPH # 1.4 10^3/uL (1.5-5.0); LYMPH % 14.3 % (24.0-44.0); MEAN CORPUSCULAR HEMOGLOBIN 29.1 pg (27.0-33.0); MEAN CORPUSCULAR HGB CONC 33.6 g/dl (32.0-36.5); MEAN CORPUSCULAR VOLUME 86.6 fl (80.0-96.0); MONO # 0.8 10^3/uL (0.0-0.8); MONO % 8.1 % (0.0-5.0); NEUTROPHILS # 7.4 10^3/uL (1.5-8.5); NEUTROPHILS % 74.4 % (36.0-66.0); PLATELET COUNT, AUTOMATED 467 10^3/uL (150-450); RED BLOOD COUNT 5.06 10^6/uL (4.30-6.10); WHITE BLOOD COUNT 9.9 10^3/uL (4.0-10.0)
--- NOTE | 2020-05-17 14:18 | REP ---
CHEST X-RAY CLINICAL: Coronavirus. Respiratory distress. COMPARISON: 03/18/2020. FINDINGS: The mediastinum and cardiac silhouette are incompletely evaluated due to overlying opacities, but stable cardiomegaly is suggested. The lung coburn demonstrate diffuse bilateral significant opacities with scattered air bronchograms, which appear increased from prior examination. No definite effusion. No pneumothorax. Skeletal structures are intact. IMPRESSION: Diffuse bilateral pulmonary infiltrate consistent with a given history of Coronavirus. MTDD
[2020-05-18 17:35] LABS: INR 1.09; PARTIAL THROMBOPLASTIN TIME 39.1 SECONDS (24.2-38.5); PROTHROMBIN TIME 14.3 SECONDS (12.5-14.3)
[2020-05-18 17:36] LABS: BASO % 0.2 % (0.0-1.0); EOS # 0.2 10^3/uL (0.0-0.5); EOS % 2.1 % (0.0-3.0); HEMATOCRIT 42.6 % (42.0-52.0); LYMPH # 1.7 10^3/uL (1.5-5.0); LYMPH % 15.6 % (24.0-44.0); MEAN CORPUSCULAR HEMOGLOBIN 28.6 pg (27.0-33.0); MEAN CORPUSCULAR HGB CONC 32.9 g/dl (32.0-36.5); MEAN CORPUSCULAR VOLUME 86.9 fl (80.0-96.0); MONO # 0.8 10^3/uL (0.0-0.8); MONO % 7.6 % (0.0-5.0); NEUTROPHILS # 8.1 10^3/uL (1.5-8.5); NEUTROPHILS % 73.5 % (36.0-66.0); PLATELET COUNT, AUTOMATED 488 10^3/uL (150-450)
[2020-05-22 09:49] LABS: BASO % 0.2 % (0.0-1.0); EOS # 0.1 10^3/uL (0.0-0.5); EOS % 1.1 % (0.0-3.0); HEMATOCRIT 40.7 % (42.0-52.0); HEMOGLOBIN 13.7 g/dl (13.5-17.5); LYMPH % 20.2 % (24.0-44.0); MEAN CORPUSCULAR HGB CONC 33.7 g/dl (32.0-36.5); MEAN CORPUSCULAR VOLUME 86.2 fl (80.0-96.0); MONO # 0.8 10^3/uL (0.0-0.8); MONO % 7.9 % (0.0-5.0); NEUTROPHILS # 7.1 10^3/uL (1.5-8.5); NEUTROPHILS % 70.2 % (36.0-66.0); PLATELET COUNT, AUTOMATED 380 10^3/uL (150-450); RED BLOOD COUNT 4.72 10^6/uL (4.30-6.10); WHITE BLOOD COUNT 10.1 10^3/uL (4.0-10.0)
[2020-05-22 10:20] LABS: BASO % 0.1 % (0.0-1.0); EOS # 0.1 10^3/uL (0.0-0.5); EOS % 1.3 % (0.0-3.0); HEMATOCRIT 41.3 % (42.0-52.0); HEMOGLOBIN 13.7 g/dl (13.5-17.5); LYMPH # 2.3 10^3/uL (1.5-5.0); MEAN CORPUSCULAR HEMOGLOBIN 28.9 pg (27.0-33.0); MEAN CORPUSCULAR HGB CONC 33.2 g/dl (32.0-36.5); MEAN CORPUSCULAR VOLUME 87.1 fl (80.0-96.0); MONO % 9.1 % (0.0-5.0); NEUTROPHILS # 7.1 10^3/uL (1.5-8.5); NEUTROPHILS % 66.9 % (36.0-66.0); PLATELET COUNT, AUTOMATED 389 10^3/uL (150-450); RED BLOOD COUNT 4.74 10^6/uL (4.30-6.10); WHITE BLOOD COUNT 10.6 10^3/uL (4.0-10.0)
[2020-05-22 20:38] LABS: BASO % 0.3 % (0.0-1.0); EOS # 0.2 10^3/uL (0.0-0.5); EOS % 1.7 % (0.0-3.0); HEMATOCRIT 44.5 % (42.0-52.0); HEMOGLOBIN 14.4 g/dl (13.5-17.5); LYMPH # 3.4 10^3/uL (1.5-5.0); LYMPH % 31.1 % (24.0-44.0); MEAN CORPUSCULAR HEMOGLOBIN 28.7 pg (27.0-33.0); MEAN CORPUSCULAR HGB CONC 32.4 g/dl (32.0-36.5); MEAN CORPUSCULAR VOLUME 88.8 fl (80.0-96.0); MONO # 0.9 10^3/uL (0.0-0.8); MONO % 8.3 % (0.0-5.0); NEUTROPHILS # 6.2 10^3/uL (1.5-8.5); NEUTROPHILS % 57.9 % (36.0-66.0); PLATELET COUNT, AUTOMATED 311 10^3/uL (150-450); RED BLOOD COUNT 5.01 10^6/uL (4.30-6.10); WHITE BLOOD COUNT 10.8 10^3/uL (4.0-10.0)
--- NOTE | 2020-05-24 10:04 | REP ---
PORTABLE CHEST X-RAY: HISTORY: Acute respiratory failure. Hypoxia. COMPARISON: None. FINDINGS: Heart size is borderline. There is some pleural thickening along each lateral chest wall. No free pleural effusion is seen. Pulmonary vasculature is congested. Interstitial markings are diffusely prominent bilaterally, consistent with advanced interstitial fibrosis or possibly interstitial edema. Distinction between these two is difficult in the absence of comparison studies. IMPRESSION: Suspect diffuse and fairly advanced interstitial fibrosis. Interstitial edema difficult to excluded. Borderline heart size. Chronic-appearing pleural thickening. No pleural effusion or definite focal infiltrate seen. MTDD
[2020-06-01 09:08] LABS: HEMATOCRIT 43.7 % (42.0-52.0); HEMOGLOBIN 14.7 g/dl (13.5-17.5); MEAN CORPUSCULAR HEMOGLOBIN 29.5 pg (27.0-33.0); MEAN CORPUSCULAR HGB CONC 33.6 g/dl (32.0-36.5); MEAN CORPUSCULAR VOLUME 87.8 fl (80.0-96.0); PLATELET COUNT, AUTOMATED 369 10^3/uL (150-450); RED BLOOD COUNT 4.98 10^6/uL (4.30-6.10)
[2020-06-01 11:28] LABS: HEMATOCRIT 44.2 % (42.0-52.0); HEMOGLOBIN 14.7 g/dl (13.5-17.5); MEAN CORPUSCULAR HEMOGLOBIN 29.3 pg (27.0-33.0); MEAN CORPUSCULAR HGB CONC 33.3 g/dl (32.0-36.5); PLATELET COUNT, AUTOMATED 356 10^3/uL (150-450); RED BLOOD COUNT 5.02 10^6/uL (4.30-6.10); WHITE BLOOD COUNT 10.7 10^3/uL (4.0-10.0)
--- NOTE | 2020-06-07 15:42 | ECHO ---
DATE OF PROCEDURE: 03/27/2020 Age: 59 years Gender: Male No height or weight measurements were recorded. Inpatient Intensive care unit (ICU) room 3203 REFERRING PHYSICIAN: Hugo Fonseca DO INDICATION: Pulmonary hypertension. Shortness of breath. MEASUREMENTS: 2D Measurements: RV - 4.0 cm LV 5.2 cm Septum 1.3 cm Posterior wall 1.3 cm Aortic root 3.0 cm LA - 4.8 cm LVEF 75% Doppler Measurements: AV - 2.54 m/s LVOT - 1.49 m/s LVOT diameter 2.0 cm AV mean gradient 13 mmHg Dimensionless index 0.55 MV-E 72, A 97, E/A ratio 0.7 Early mitral deceleration time 172 ms E prime medial 8.7, A prime medial 11.5, E prime lateral 12.6 Average E/E prime ratio 6.8/PCWP 10.3 mmHg PV -1.2 m/s Pulmonary artery acceleration time 100 ms PASP 37 mmHg IVC - 2.2 cm COMMENTS: Normal sinus rhythm without intraventricular conduction disturbance. M-Mode and two dimensional echocardiography was performed with pulse, continuous wave, color flow, and tissue Doppler studies. Mildly hypertrophied left ventricle with hyperkinetic wall motion. Moderately dilated left atrium with grade 1 left ventricular (LV) diastolic dysfunction but currently normal estimated mean left atrial pressure. Normal right heart chamber sizes and motion with Doppler evidence of mild pulmonary hypertension. Inferior vena cava (IVC) size upper limits of normal with normal respiratory collapse against an elevated central venous pressure at this time. Normal aortic dimensions. Slightly thickened aortic valvular apparatus without functional abnormality. The elevated peak velocities are related to hyperkinetic left ventricular wall motion. Normal appearing and functioning mitral valvular apparatus. Normal appearing tricuspid valve with very mild insufficiency. No apparent intracardiac mass or pericardial effusion MTDD
[2020-06-08 11:20] LABS: BLOOD UREA NITROGEN 20 MG/DL (7-18); CALCIUM LEVEL 8.8 MG/DL (8.8-10.2); CARBON DIOXIDE LEVEL 29 MEQ/L (21-32); CHLORIDE LEVEL 98 MEQ/L (98-107); GLOMERULAR FILTRATION RATE > 60.0 (>49); GLUCOSE, FASTING 334 MG/DL (70-100); POTASSIUM SERUM 3.9 MEQ/L (3.5-5.1); SODIUM LEVEL 135 MEQ/L (136-145)
[2020-06-09 14:19] LABS: BASO % 0.1 % (0.0-1.0); EOS # 0.1 10^3/uL (0.0-0.5); EOS % 1.1 % (0.0-3.0); HEMATOCRIT 41.8 % (42.0-52.0); HEMOGLOBIN 13.8 g/dl (13.5-17.5); LYMPH # 2.7 10^3/uL (1.5-5.0); LYMPH % 26.9 % (24.0-44.0); MEAN CORPUSCULAR VOLUME 87.8 fl (80.0-96.0); MONO # 0.9 10^3/uL (0.0-0.8); MONO % 8.7 % (0.0-5.0); NEUTROPHILS # 6.2 10^3/uL (1.5-8.5); NEUTROPHILS % 62.7 % (36.0-66.0); PLATELET COUNT, AUTOMATED 278 10^3/uL (150-450); RED BLOOD COUNT 4.76 10^6/uL (4.30-6.10); WHITE BLOOD COUNT 9.9 10^3/uL (4.0-10.0)
[2020-06-17 13:12] LABS: BLOOD UREA NITROGEN 18 MG/DL (7-18); CALCIUM LEVEL 9.3 MG/DL (8.8-10.2); CARBON DIOXIDE LEVEL 32 MEQ/L (21-32); CHLORIDE LEVEL 98 MEQ/L (98-107); CREATININE FOR GFR 0.73 MG/DL (0.70-1.30); GLOMERULAR FILTRATION RATE > 60.0 (>49); GLUCOSE, FASTING 292 MG/DL (70-100); POTASSIUM SERUM 4.4 MEQ/L (3.5-5.1); SODIUM LEVEL 135 MEQ/L (136-145)
[2020-06-19 10:43] LABS: ALBUMIN 2.5 GM/DL (3.2-5.2); ALT/SGPT 84 U/L (12-78); BILIRUBIN,TOTAL 0.4 MG/DL (0.2-1.0); BLOOD UREA NITROGEN 21 MG/DL (7-18); C REACTIVE PROTEIN QUANTITATIV 3.11 MG/DL (0.00-0.30); CALCIUM LEVEL 9.1 MG/DL (8.8-10.2); CARBON DIOXIDE LEVEL 31 MEQ/L (21-32); CHLORIDE LEVEL 99 MEQ/L (98-107); CREATININE FOR GFR 0.79 MG/DL (0.70-1.30); FERRITIN 474 NG/ML (26-388); GLOMERULAR FILTRATION RATE > 60.0 (>49); GLUCOSE, FASTING 254 MG/DL (70-100); MAGNESIUM LEVEL 1.7 MG/DL (1.8-2.4); POTASSIUM SERUM 4.4 MEQ/L (3.5-5.1); SODIUM LEVEL 136 MEQ/L (136-145); TOTAL PROTEIN 6.4 GM/DL (6.4-8.2)
[2020-06-24 10:03] LABS: ALBUMIN 3.2 GM/DL (3.2-5.2); ALT/SGPT 73 U/L (12-78); BILIRUBIN,TOTAL 0.4 MG/DL (0.2-1.0); BLOOD UREA NITROGEN 23 MG/DL (7-18); CALCIUM LEVEL 9.4 MG/DL (8.8-10.2); CARBON DIOXIDE LEVEL 32 MEQ/L (21-32); CHLORIDE LEVEL 101 MEQ/L (98-107); CREATININE FOR GFR 0.82 MG/DL (0.70-1.30); GLOMERULAR FILTRATION RATE > 60.0 (>49); GLUCOSE, FASTING 231 MG/DL (70-100); POTASSIUM SERUM 4.5 MEQ/L (3.5-5.1); SODIUM LEVEL 137 MEQ/L (136-145); TOTAL PROTEIN 6.9 GM/DL (6.4-8.2)
[2020-06-24 16:41] LABS: BLOOD UREA NITROGEN 25 MG/DL (7-18); CALCIUM LEVEL 9.1 MG/DL (8.8-10.2); CARBON DIOXIDE LEVEL 31 MEQ/L (21-32); CHLORIDE LEVEL 101 MEQ/L (98-107); CREATININE FOR GFR 0.72 MG/DL (0.70-1.30); GLOMERULAR FILTRATION RATE > 60.0 (>49); GLUCOSE, FASTING 257 MG/DL (70-100); MAGNESIUM LEVEL 1.9 MG/DL (1.8-2.4); POTASSIUM SERUM 4.3 MEQ/L (3.5-5.1); SODIUM LEVEL 136 MEQ/L (136-145)
[2020-06-25 10:03] LABS: BLOOD UREA NITROGEN 19 MG/DL (7-18); CALCIUM LEVEL 9.1 MG/DL (8.8-10.2); CARBON DIOXIDE LEVEL 31 MEQ/L (21-32); CHLORIDE LEVEL 99 MEQ/L (98-107); CREATININE FOR GFR 0.76 MG/DL (0.70-1.30); GLOMERULAR FILTRATION RATE > 60.0 (>49); GLUCOSE, FASTING 251 MG/DL (70-100); MAGNESIUM LEVEL 1.8 MG/DL (1.8-2.4); POTASSIUM SERUM 4.2 MEQ/L (3.5-5.1); SODIUM LEVEL 136 MEQ/L (136-145)
[2020-06-25 11:48] LABS: BLOOD UREA NITROGEN 20 MG/DL (7-18); CARBON DIOXIDE LEVEL 31 MEQ/L (21-32); CHLORIDE LEVEL 97 MEQ/L (98-107); CREATININE FOR GFR 0.71 MG/DL (0.70-1.30); GLOMERULAR FILTRATION RATE > 60.0 (>49); GLUCOSE, FASTING 303 MG/DL (70-100); MAGNESIUM LEVEL 1.9 MG/DL (1.8-2.4); POTASSIUM SERUM 3.8 MEQ/L (3.5-5.1); SODIUM LEVEL 132 MEQ/L (136-145)
[2020-06-26 11:55] LABS: BASO % 0.2 % (0.0-1.0); EOS # 0.2 10^3/uL (0.0-0.5); EOS % 1.7 % (0.0-3.0); HEMATOCRIT 42.3 % (42.0-52.0); HEMOGLOBIN 13.9 g/dl (13.5-17.5); LYMPH % 17.8 % (24.0-44.0); MEAN CORPUSCULAR HEMOGLOBIN 28.6 pg (27.0-33.0); MEAN CORPUSCULAR HGB CONC 32.9 g/dl (32.0-36.5); MONO % 8.6 % (0.0-5.0); NEUTROPHILS # 7.8 10^3/uL (1.5-8.5); NEUTROPHILS % 70.8 % (36.0-66.0); PLATELET COUNT, AUTOMATED 416 10^3/uL (150-450); RED BLOOD COUNT 4.86 10^6/uL (4.30-6.10)
[2020-06-26 16:51] LABS: BLOOD UREA NITROGEN 21 MG/DL (7-18); CREATININE FOR GFR 0.74 MG/DL (0.70-1.30); GLOMERULAR FILTRATION RATE > 60.0 (>49); GLUCOSE, FASTING 214 MG/DL (70-100); POTASSIUM SERUM 4.2 MEQ/L (3.5-5.1); SODIUM LEVEL 133 MEQ/L (136-145)
[2020-06-26 16:52] LABS: CALCIUM LEVEL 9.1 MG/DL (8.8-10.2); CARBON DIOXIDE LEVEL 32 mmol/L (20-29); CHLORIDE LEVEL 96 MEQ/L (98-107); MAGNESIUM LEVEL 1.8 MG/DL (1.8-2.4)
[2020-06-28 07:41] LABS: ALBUMIN 2.7 GM/DL (3.2-5.2); ALT/SGPT 82 U/L (12-78); BILIRUBIN,TOTAL 0.3 MG/DL (0.2-1.0); BLOOD UREA NITROGEN 17 MG/DL (7-18); CALCIUM LEVEL 8.8 MG/DL (8.8-10.2); CARBON DIOXIDE LEVEL 32 MEQ/L (21-32); CHLORIDE LEVEL 97 MEQ/L (98-107); CREATININE FOR GFR 0.73 MG/DL (0.70-1.30); GLOMERULAR FILTRATION RATE > 60.0 (>49); GLUCOSE, FASTING 296 MG/DL (70-100); POTASSIUM SERUM 4.1 MEQ/L (3.5-5.1); SODIUM LEVEL 134 MEQ/L (136-145); TOTAL PROTEIN 6.2 GM/DL (6.4-8.2)
== END 2020-04-05 10:41 | disposition home or self-care (01) | DRG 177 ==
LOC: M ED 19:55 → EEVIPCON 22:13 → M ED INP 22:13 → ENRESERV 22:56 → M ICU 03-19 01:19
PROVIDERS: ADMIT Internal Medicine; ATTEND Internal Medicine
PROC: 5A09557 Assistance with Respiratory Ventilation, Greater than 96 Consecutive Hours, Continuous Positive Airway Pressure (ICD-10-PCS; principal; 2020-03-18)
DX: U07.1 COVID-19 (principal); J96.21 Acute and chronic respiratory failure with hypoxia; J18.9 Pneumonia, unspecified organism; I50.33 Acute on chronic diastolic (congestive) heart failure; E87.2 Acidosis; Z68.43 Body mass index [BMI] 50.0-59.9, adult; I11.0 Hypertensive heart disease with heart failure; E78.5 Hyperlipidemia, unspecified; E11.40 Type 2 diabetes mellitus with diabetic neuropathy, unspecified; G47.33 Obstructive sleep apnea (adult) (pediatric); E11.65 Type 2 diabetes mellitus with hyperglycemia; E66.01 Morbid (severe) obesity due to excess calories; Z66 Do not resuscitate; Z79.82 Long term (current) use of aspirin; Z79.84 Long term (current) use of oral hypoglycemic drugs; Z79.899 Other long term (current) drug therapy; Z88.0 Allergy status to penicillin; Z87.891 Personal history of nicotine dependence

== ENCOUNTER → 2021-02-27 | Outpatient (REF) | payer OTHER ==
[~2021-02-27] MED LIST changes: +AMIT75TA PO; +ASPI-161 PO; +FLON1SPR; +FLUT44IN INH; +GLIP10TA6 PO; +HYDR12CA PO; +JARD1TAB3 PO; -LISI-538 PO; +LISI20TA33 PO; +LOSA50TA88 PO; +MOBI4TAB PO; +PREG100CA PO; +PROAAER10 INH
[2021-02-27 18:11] LABS: BASO % 0.5 % (0.0-1.0); EOS # 0.4 10^3/uL (0.0-0.5); EOS % 4.9 % (0.0-3.0); HEMATOCRIT 47.6 % (42.0-52.0); HEMOGLOBIN 15.8 g/dl (13.5-17.5); LYMPH # 2.8 10^3/uL (1.5-5.0); LYMPH % 35.1 % (24.0-44.0); MEAN CORPUSCULAR HEMOGLOBIN 29.4 pg (27.0-33.0); MEAN CORPUSCULAR HGB CONC 33.2 g/dl (32.0-36.5); MEAN CORPUSCULAR VOLUME 88.6 fl (80.0-96.0); MONO # 0.8 10^3/uL (0.0-0.8); MONO % 9.7 % (2.0-8.0); NEUTROPHILS # 3.9 10^3/uL (1.5-8.5); NEUTROPHILS % 49.5 % (36.0-66.0); PLATELET COUNT, AUTOMATED 286 10^3/uL (150-450); RED BLOOD COUNT 5.37 10^6/uL (4.30-6.10); WHITE BLOOD COUNT 7.9 10^3/uL (4.0-10.0)
[2021-02-27 18:47] LABS: BLOOD UREA NITROGEN 15 MG/DL (7-18); CALCIUM LEVEL 9.4 MG/DL (8.8-10.2); CARBON DIOXIDE LEVEL 27 MEQ/L (21-32); CHLORIDE LEVEL 100 MEQ/L (98-107); CREATININE FOR GFR 0.81 MG/DL (0.70-1.30); GLOMERULAR FILTRATION RATE > 60.0 (>49); GLUCOSE, FASTING 176 MG/DL (70-100); NT-PRO BNP 17 PG/ML (<125); POTASSIUM SERUM 4.2 MEQ/L (3.5-5.1); SODIUM LEVEL 137 MEQ/L (136-145)
== END ==
LOC: M LAB REF 17:27
PROVIDERS: ATTEND Internal Medicine Pulmonary Disease
DX: G47.33 Obstructive sleep apnea (adult) (pediatric) (principal)

== ENCOUNTER → 2021-03-07 | Outpatient (CLI) | payer OTHER | LOC: M LAB 10:02 | PROVIDERS: ATTEND Internal Medicine Pulmonary Disease | DX: G47.33 Obstructive sleep apnea (adult) (pediatric) (principal) ==

== ENCOUNTER → 2021-03-18 | Outpatient (CLI) | payer OTHER ==
--- NOTE | 2021-03-18 17:36 | REP ---
INDICATION: COVID-19, LOCALIZED EDEMA/US 1ST, CT 2ND. COMPARISON: AP chest 04/01/2020, CT angio 03/12/2017 TECHNIQUE: Scanning through the chest without the contrast and with the coronal and sagittal reconstructions provided. FINDINGS: Lung coburn show a calcified granuloma in the right upper lobe peripherally unchanged. Is much better level of inflation than on the previous CT study or the portable chest from almost 1 year ago I do not see any significant residual scarring, acute infiltrate, parenchymal masses, pleural plaque, effusion or other acute finding. There is some minor dependent atelectatic change in the right posterior lower lung zone. Heart is not enlarged. There is no pericardial thickening or effusion some coronary artery calcifications are noted. The aorta has calcifications at the arch and descending portion without aneurysm no pathologic sized hilar nodes. Precarinal node of the 12 mm and right hilar node also 12 mm are unchanged from 2017 tracheal airway intact bone windows show Schmorl's nodes throughout the thoracic spine endplate spurring but no compression deformity or destructive lesion. Sternum, manubrium, medial clavicles, visualized scapulae and ribs were all grossly intact without fracture or focal lesion. The upper abdomen shows diffuse fatty infiltration in the liver. The liver is not seen in its entirety but I suspect it is enlarged and vertical diameter fullness of the left and right hepatic lobe to the fatty infiltration no a Paddock mass or biliary dilatation. Gallbladder shows no calcified gallstones or mass common duct without calcifications noted pancreas visible is without mass, ductal dilatation or inflammatory change. No peripancreatic adenopathy adrenal glands are normal upper poles of kidneys again show peripheral cyst in the upper upper pole on the left as a benign finding. Small bowel loops and colon in the upper abdomen were unremarkable there is no hiatal hernia IMPRESSION: 1. Lungs well inflated and clear, no residual scarring, infiltrate, pleural effusion, pleural plaques or other acute finding in the lung coburn. 2. The heart is not enlarged. The aorta is without aneurysm. There are stable 12 mm nodes in the precarinal and right hilar region since the study of 4 years ago. 3. Fatty change liver and some hepatomegaly suggested without biliary dilatation or ascites. No calcified gallstones. Spleen unremarkable. Adrenal glands, pancreas and stomach unremarkable. 4. Kidneys show exophytic upper pole cyst on the left. <Electronically signed by Mata Angel > 03/18/21 [id number]
--- NOTE | 2021-03-18 18:41 | REP ---
INDICATION: COVID-19, LOCALIZED EDEMA/US 1ST, CT 2ND COMPARISON: None. TECHNIQUE: Real time compression and duplex Doppler interrogation of the bilateral lower extremity deep venous system is performed. Compression ultrasound is performed of the bilateral peroneal and posterior tibial veins. FINDINGS: Bilaterally, the common femoral, superficial femoral and popliteal veins are fully compressible with transducer pressure and demonstrate normal spontaneous and phasic flow, without evidence of deep venous thrombosis. No thrombus is seen in the bilateral visualized portions of the peroneal and posterior tibial veins. IMPRESSION: No evidence of deep venous thrombosis of the bilateral lower extremity femoral popliteal venous system. <Electronically signed by Bennie Velasco > 03/18/21 [id number]
== END ==
LOC: M RAD 16:37
PROVIDERS: ATTEND Internal Medicine Pulmonary Disease
DX: R60.0 Localized edema (principal); J84.10 Pulmonary fibrosis, unspecified; I70.0 Atherosclerosis of aorta; K76.0 Fatty (change of) liver, not elsewhere classified; N28.1 Cyst of kidney, acquired; Z86.16 Personal history of COVID-19

== ENCOUNTER → 2021-12-02 | Outpatient (CLI) | payer OTHER ==
[~2021-12-02] MED LIST changes: +LOSA50TA28 PO; -LOSA50TA88 PO
== END ==
LOC: M RAD 17:34
PROVIDERS: ATTEND Family Medicine Addiction Medicine
DX: M25.561 Pain in right knee (principal); M17.0 Bilateral primary osteoarthritis of knee

== ENCOUNTER → 2022-06-20 | Outpatient (CLI) | payer OTHER ==
[2022-06-20 11:14] LABS: HEMOGLOBIN A1c 12.8 %
[2022-06-20 11:35] LABS: ALBUMIN 3.9 GM/DL (3.2-5.2); ALT/SGPT 51 U/L (12-78); BILIRUBIN,TOTAL 0.7 MG/DL (0.2-1.0); BLOOD UREA NITROGEN 13 MG/DL (7-18); CALCIUM LEVEL 9.5 MG/DL (8.8-10.2); CARBON DIOXIDE LEVEL 28 MEQ/L (21-32); CHLORIDE LEVEL 99 MEQ/L (98-107); CHOLESTEROL LEVEL 156 MG/DL (<200); CHOLESTEROL RISK RATIO 4.875 (<5); CREATININE FOR GFR 0.96 MG/DL (0.70-1.30); GLOMERULAR FILTRATION RATE > 60.0 (>49); GLUCOSE, FASTING 286 MG/DL (70-100); HDL CHOLESTEROL 32 MG/DL (>40); LDL CHOLESTEROL 76 MG/DL (<100); NON-HDL-C 124 MG/DL; POTASSIUM SERUM 3.9 MEQ/L (3.5-5.1); SODIUM LEVEL 133 MEQ/L (136-145); TOTAL PROTEIN 7.3 GM/DL (6.4-8.2); TRIGLYCERIDES LEVEL 239 MG/DL (<150)
== END ==
LOC: M LAB 10:19
PROVIDERS: ATTEND Family Medicine Addiction Medicine
DX: E11.9 Type 2 diabetes mellitus without complications (principal)

== ENCOUNTER → 2022-09-05 | Outpatient (CLI) | payer OTHER | LOC: M RAD 14:33 | PROVIDERS: ATTEND Physician Assistant | DX: N17.0 Acute kidney failure with tubular necrosis (principal); M23.212 Derangement of anterior horn of medial meniscus due to old tear or injury, left knee; M23.221 Derangement of posterior horn of medial meniscus due to old tear or injury, right knee; M25.462 Effusion, left knee; M94.262 Chondromalacia, left knee; M25.762 Osteophyte, left knee ==

== ENCOUNTER → 2022-10-06 | Outpatient (CLI) | payer OTHER | LOC: M RAD 07:29 | PROVIDERS: ATTEND Physician Assistant | DX: M25.561 Pain in right knee (principal); M17.11 Unilateral primary osteoarthritis, right knee; M25.461 Effusion, right knee; S83.241A Other tear of medial meniscus, current injury, right knee, initial encounter; X58.XXXA Exposure to other specified factors, initial encounter; Y92.9 Unspecified place or not applicable; Y93.9 Activity, unspecified; Y99.9 Unspecified external cause status ==

== ENCOUNTER → 2022-11-04 | Outpatient (CLI) | payer OTHER ==
[2022-11-04 08:40] LABS: CREATININE, URINE 40.5 MG/DL; MAU/CREAT RATIO 59.2 MCG/MG (0.0-30.0)
[2022-11-04 08:42] LABS: ALBUMIN 3.7 G/DL (3.2-5.2); ALKALINE PHOSPHATASE 150 U/L (46-116); ALT/SGPT 59 U/L (7.0-40); AST/SGOT 32 U/L (<34); BILIRUBIN,TOTAL 0.7 MG/DL (0.3-1.2); BLOOD UREA NITROGEN 18 MG/DL (9-23); CALCIUM LEVEL 9.2 MG/DL (8.3-10.6); CARBON DIOXIDE LEVEL 31 MMOL/L (20-31); CHLORIDE LEVEL 96 MMOL/L (98-107); CHOLESTEROL LEVEL 166 MG/DL (<200); CHOLESTEROL RISK RATIO 3.93 (<5); CREATININE FOR GFR 0.75 MG/DL (0.70-1.30); GLOMERULAR FILTRATION RATE > 60.0 (>49); GLUCOSE, FASTING 349 MG/DL (74-106); HDL CHOLESTEROL 42.2 MG/DL (>40); LDL CHOLESTEROL 87.6 MG/DL (<100); NON-HDL-C 124 MG/DL; POTASSIUM SERUM 4.1 MMOL/L (3.5-5.1); SODIUM LEVEL 134 MMOL/L (136-145); TOTAL PROTEIN 6.8 G/DL (5.7-8.2); TRIGLYCERIDES LEVEL 181 MG/DL (<150)
[2022-11-04 08:43] LABS: THYROID STIMULATING HORMONE 1.738 uIU/ML (0.55-4.78)
[2022-11-04 09:20] LABS: HEMOGLOBIN A1c 12.4 % (4.0-6.0)
== END ==
LOC: M LAB 07:15
PROVIDERS: ATTEND Family Medicine Addiction Medicine
DX: E11.9 Type 2 diabetes mellitus without complications (principal)

== ENCOUNTER 2023-08-29 19:10 | Emergency (ER) | payer OTHER ==
[~2023-08-29] VITALS: Ht 172.7 cm; Wt 152.0 kg
[2023-08-29] MEDS ORDERED: SEMA0.257 (19:21)
[2023-08-29] MEDS ORDERED: CELE0.09 (19:21)
[2023-08-29] MEDS ORDERED: SEMGLEE (19:21)
[2023-08-29 21:30] VITALS: O2SAT 92
[2023-08-29] MEDS ORDERED: ACETAMINOPHEN 325 MG TAB PO ONE (22:40)
[2023-08-29] MEDS ORDERED: BENZ200C70 PO (22:42)
[2023-08-29] MEDS ORDERED: MUCI600T31 PO (22:42)
[2023-08-29 22:45] VITALS: BP 145/72; TEMP 99.6; O2SAT 92
[2023-08-29] MEDS ORDERED: NIRMATRELVIR/RITONAVIR CO-PACK (EMERGENCY USE AUTH) PO SCH (22:45)
[2023-08-30] MEDS ORDERED: NIRMATRELVIR/RITONAVIR CO-PACK (EMERGENCY USE AUTH) PO SCH (09:00)
== END 2023-08-29 23:12 | disposition home or self-care (01) ==
LOC: M ED 19:10
DX: U07.1 COVID-19 (principal); Z88.0 Allergy status to penicillin; Z79.82 Long term (current) use of aspirin; Z79.4 Long term (current) use of insulin; Z79.899 Other long term (current) drug therapy

== ENCOUNTER → 2023-10-18 | Outpatient (REF) | payer OTHER ==
[~2023-10-18] MED LIST changes: -ASPI-161 PO; +ASPI-615 PO; +BENZ200C70 PO; +CELE0.09; +MUCI600T31 PO; +SEMA0.257; +SEMGLEE
[2023-10-18 13:05] LABS: ALBUMIN 4.1 G/DL (3.2-5.2); ALKALINE PHOSPHATASE 117 U/L (46-116); ALT/SGPT 37 U/L (7.0-40); AST/SGOT 23 U/L (<34); BILIRUBIN,TOTAL 0.6 MG/DL (0.3-1.2); BLOOD UREA NITROGEN 15 MG/DL (9-23); CALCIUM LEVEL 9.9 MG/DL (8.3-10.6); CARBON DIOXIDE LEVEL 28 MMOL/L (20-31); CHLORIDE LEVEL 98 MMOL/L (98-107); CHOLESTEROL LEVEL 149 MG/DL (<200); CHOLESTEROL RISK RATIO 4.47 (<5); CREATININE FOR GFR 0.76 MG/DL (0.70-1.30); GLOMERULAR FILTRATION RATE > 60.0 (>49); GLUCOSE, FASTING 222 MG/DL (74-106); HDL CHOLESTEROL 33.3 MG/DL (>40); LDL CHOLESTEROL 65.1 MG/DL (<100); NON-HDL-C 115.7 MG/DL; SODIUM LEVEL 136 MMOL/L (136-145); TOTAL PROTEIN 7.3 G/DL (5.7-8.2); TRIGLYCERIDES LEVEL 253 MG/DL (<150)
[2023-10-18 13:07] LABS: THYROID STIMULATING HORMONE 1.936 uIU/ML (0.55-4.78)
== END ==
LOC: M LAB REF 11:29
PROVIDERS: ATTEND Family Medicine Addiction Medicine
DX: E11.9 Type 2 diabetes mellitus without complications (principal); R53.83 Other fatigue

== ENCOUNTER → 2024-05-05 | Outpatient (REF) | payer OTHER ==
[2024-05-05 13:23] LABS: ALBUMIN 4.1 G/DL (3.2-5.2); ALKALINE PHOSPHATASE 147 U/L (46-116); ALT/SGPT 32 U/L (7.0-40); AST/SGOT 21 U/L (<34); BILIRUBIN,TOTAL 0.7 MG/DL (0.3-1.2); BLOOD UREA NITROGEN 11 MG/DL (9-23); CALCIUM LEVEL 9.4 MG/DL (8.3-10.6); CARBON DIOXIDE LEVEL 29 MMOL/L (20-31); CHLORIDE LEVEL 99 MMOL/L (98-107); CHOLESTEROL LEVEL 155 MG/DL (<200); GLOMERULAR FILTRATION RATE > 60.0 (>49); GLUCOSE, FASTING 396 MG/DL (74-106); HDL CHOLESTEROL 26.7 MG/DL (>40); LDL CHOLESTEROL 65.7 MG/DL (<100); NON-HDL-C 128.3 MG/DL; POTASSIUM SERUM 4.1 MMOL/L (3.5-5.1); SODIUM LEVEL 132 MMOL/L (136-145); TOTAL PROTEIN 6.9 G/DL (5.7-8.2); TRIGLYCERIDES LEVEL 313 MG/DL (<150)
[2024-05-05 13:31] LABS: THYROID STIMULATING HORMONE 1.323 uIU/ML (0.55-4.78)
== END ==
LOC: M LAB REF 12:33
PROVIDERS: ATTEND Family Medicine Addiction Medicine
DX: E11.9 Type 2 diabetes mellitus without complications (principal)

== ENCOUNTER 2025-03-09 20:48 | Emergency (ER) | payer OTHER ==
[~2025-03-09] VITALS: Ht 172.7 cm; Wt 148.7 kg
[~2025-03-09 20:48] MED LIST changes: +GLIP10TA15 PO; -GLIP10TA6 PO; +GLIP2.5T46 PO; -GLIP2.5T6 PO; +PREG-35; +PREG-35 PO; -PREG100CA; -PREG100CA PO
[2025-03-09] MEDS ORDERED: SEMA0.257 SQ (21:14)
[2025-03-09] MEDS ORDERED: ATOR40TA75 PO (21:14)
[2025-03-09] MEDS ORDERED: MELO15TA28 PO (21:14)
[2025-03-09 21:46] LABS: VENOUS BASE EXCESS 1.6 (-2.0-2.0); VENOUS HCO3 26.2 MMOL/L (23.0-27.0); VENOUS O2 SATURATION 94.8 % (60.0-80.0); VENOUS PARTIAL PRESSURE CO2 41.3 mmHg (38.0-50.0); VENOUS PARTIAL PRESSURE O2 71.8 mmHg (30.0-50.0); VENOUS PH 7.421 UNITS (7.330-7.430); VENOUS STANDARD HCO3 25.8 MMOL/L; VENOUS TOTAL CO2 27.5 MMOL/L (24.0-28.0)
[2025-03-09 21:53] LABS: BASO # 0.1 10^3/uL (0.0-0.2); BASO % 0.8 % (0.0-1.0); EOS # 0.4 10^3/uL (0.0-0.5); EOS % 6.2 % (0.0-3.0); LYMPH # 3.0 10^3/uL (1.5-5.0); LYMPH % 45.2 % (24.0-44.0); MONO # 0.5 10^3/uL (0.0-0.8); MONO % 7.2 % (2.0-8.0); NEUTROPHILS # 2.7 10^3/uL (1.5-8.5); NEUTROPHILS % 40.3 % (36.0-66.0); PLATELET COUNT, AUTOMATED 217 10^3/uL (150-450)
[2025-03-09] MEDS: NS (Normal Saline) 0.9% 1,000 ML IV ONE (22:01)
[2025-03-09] MEDS: HumuLIN R (REGULAR) INSULIN (NovoLIN R) **100 U/ML** PER UNIT IV ONE ×2 (22:01→23:49)
[2025-03-09 22:27] LABS: ETHYL ALCOHOL (ETHANOL) < 0.003 % (0.000-0.010)
[2025-03-09 22:29] LABS: ACETONE/KETONE 0.31 MMOL/L (0.02-0.27)
[2025-03-09 22:37] LABS: ALT/SGPT 29 U/L (7.0-40); AST/SGOT 22 U/L (<34); CALCIUM LEVEL 9.4 MG/DL (8.3-10.6); CARBON DIOXIDE LEVEL 26 MMOL/L (20-31); CHLORIDE LEVEL 90 MMOL/L (98-107); CREATININE FOR GFR 0.81 MG/DL (0.70-1.30); GLOMERULAR FILTRATION RATE > 90.0 (>49); POTASSIUM SERUM 4.2 MMOL/L (3.5-5.1); SODIUM LEVEL 128 MMOL/L (136-145)
[2025-03-10 00:25] LABS: KETONE, URINE AUTO RFX TRACE mg/dL (NEGATIVE); LEUKOCYTE ESTERASE UR AUTO RFX NEGATIVE (NEGATIVE); NITRITE, URINE AUTO RFX NEGATIVE (NEGATIVE); RBC, URINE AUTO RFX 0 /HPF (0-3); SQUAM EPITHELIAL CELL UR AURFX 0 /HPF (0-6); WBC, URINE AUTO RFX 0 /HPF (0-3)
[2025-03-10] MEDS ORDERED: METF10004 PO (01:26)
[2025-03-10 02:35] VITALS: BP 138/80; TEMP 96.9; O2SAT 96
== END 2025-03-10 02:40 | disposition home or self-care (01) ==
LOC: M ED 20:48
DX: E11.65 Type 2 diabetes mellitus with hyperglycemia (principal); I10 Essential (primary) hypertension; Z88.0 Allergy status to penicillin; Z79.84 Long term (current) use of oral hypoglycemic drugs; Z79.4 Long term (current) use of insulin; Z79.899 Other long term (current) drug therapy
CPT/HCPCS: 80048; 80076; 81001; 82010; 82077; 82803; 83036; 83690; 85025; 93041; 96361; 96374; 96375; 99285; J1815

== ENCOUNTER → 2025-08-01 | Outpatient (REF) | payer OTHER ==
[~2025-08-01] MED LIST changes: +ATOR40TA75 PO; +HYDR12.510 PO; -HYDR12CA PO; +MELO15TA28 PO; +METF10004 PO; +SEMA0.257 SQ
[2025-08-01 15:18] LABS: ALT/SGPT 26 U/L (7.0-40); AST/SGOT 20 U/L (<34); CALCIUM LEVEL 9.4 MG/DL (8.3-10.6); CARBON DIOXIDE LEVEL 26 MMOL/L (20-31); CHLORIDE LEVEL 99 MMOL/L (98-107); CHOLESTEROL LEVEL 133 MG/DL (<200); CHOLESTEROL RISK RATIO 4.80 (<5); CREATININE FOR GFR 0.66 MG/DL (0.70-1.30); GLOMERULAR FILTRATION RATE > 90.0 (>49); LDL CHOLESTEROL 54.5 MG/DL (<100); NON-HDL-C 105.3 MG/DL; POTASSIUM SERUM 4.4 MMOL/L (3.5-5.1); SODIUM LEVEL 137 MMOL/L (136-145); TRIGLYCERIDES LEVEL 254 MG/DL (<150)
[2025-08-01 15:36] LABS: ESTIMATED AVERAGE GLUCOSE 349.0 MG/DL (60-110)
== END ==
LOC: M LAB REF 13:32
PROVIDERS: ATTEND Family Medicine Addiction Medicine
DX: E11.8 Type 2 diabetes mellitus with unspecified complications (principal)